=== PATIENT | male | born 1950 | race Caucasian/White ===

== ENCOUNTER 2016-10-29 15:46 | Observation (INO) | payer BC ==
[~2016-10-29] VITALS: Ht 185.4 cm; Wt 106.4 kg
[~2016-10-29 15:46] MED LIST: ASPEC81 PO; LISI20TA PO; SIMV20TA2 PO
[2016-10-29] MEDS ORDERED: LSNP/30 PO (16:07)
[2016-10-29] MEDS ORDERED: ZCR40 PO (16:07)
[2016-10-29 16:46] LABS: HEMATOCRIT 44.1 % (42-52); MEAN CELL VOLUME 96.1 fL (80-100); MEAN CORPUSCULAR HEMOGLOBIN 32.9 pg (25-34); MEAN CORPUSCULAR HGB CONC 34.2 g/dl (32-36); MEAN PLATELET VOLUME 10.8 fL (7.4-10.4); PLATELET COUNT 168 K/uL (130-400); RED BLOOD COUNT 4.59 M/uL (4.7-6.1); WHITE BLOOD COUNT 6.91 K/uL (4.8-10.8)
--- NOTE | 2016-10-29 16:53 | DIAGNOSTIC IMAGING REPORT ---
CHEST ONE VIEW PORTABLE HISTORY: Atypical chest pain COMPARISON: None. FINDINGS: The heart is top normal in size. Mild diffuse interstitial thickening. This may be chronic. No pleural effusions. No pneumothorax. No focal lung consolidations to suggest pneumonia. No evidence for pulmonary edema. IMPRESSION: Mild diffuse interstitial thickening which is likely chronic. No focal lung consolidations to suggest pneumonia. No evidence for pulmonary edema. Electronically signed by: Moises Motta M.D. 10/29/2016 4:52 PM Dictated Date/Time: 10/29/2016 4:51 PM
[2016-10-29 17:00] LABS: BLOOD UREA NITROGEN 14 mg/dl (7-18); CALCIUM 9.7 mg/dl (8.5-10.1); CARBON DIOXIDE 25 mmol/L (21-32); CHLORIDE 106 mmol/L (98-107); GLUCOSE 119 mg/dl (70-99); POTASSIUM 3.8 mmol/L (3.5-5.1); SODIUM 141 mmol/L (136-145)
[2016-10-29 17:01] LABS: INR 1.1 (0.9-1.1); PARTIAL THROMBOPLASTIN RATIO 0.9; PROTHROMBIN TIME (PATIENT) 11.4 SECONDS (9.0-12.0)
[2016-10-29 17:02] LABS: ALT/SGPT 56 U/L (12-78); AST/SGOT 17 U/L (15-37); BUN/CREATININE RATIO 15.2 (10-20); CREATININE 0.89 mg/dl (0.60-1.40)
[2016-10-29 17:11] LABS: ALB/GLOB RATIO 1.2 (0.9-2); ALKALINE PHOSPHATASE 68 U/L (45-117); CKMB/CK RATIO 1.9 (0-3.0)
[2016-10-29] MEDS ORDERED: ASPIRIN 324 MG CHEW PO STA (17:12)
[2016-10-29] MEDS ORDERED: ACETAMINOPHEN 500 MG TAB PO STA (17:12)
[2016-10-29] MEDS ORDERED: KETOROLAC TROMETHAMINE 30 MG/ML VIAL IV STA (17:12)
--- NOTE | 2016-10-29 17:12 | EMERGENCY ROOM VISIT NOTE ---
History Report prepared by Yohana: Erendira Tyler Under the Supervision of: Dr. Jonah Quick M.D. First contact with patient: 17:05 Chief Complaint: CHEST PAIN Stated Complaint: CHEST PAIN Nursing Triage Summary: Patient reports going to his PCp for chest pain that he got after excersizing on the bike a the gym. Patient has had chest pain for approx 1.5 hours explains it is a "tightness" patient. Patient was given 2 nitor tabs at PCP office took pain from 7 to a 3. Patient also was given 324 ASA, patient denies SOB or nausea at this time. History of Present Illness The patient is a 65 year old male who presents to the Emergency Room with complaints of constant chest pain beginning 2 hours prior to arrival. The patient states that he was at the gym on the exercise bike and then went home when the pain began. He notes that movement worsens the pain and describes the pain as tightness. He is experiencing nausea. The patient denies history of heart disease of recent stress test. 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 Review of Systems See HPI for pertinent positives & negatives. A total of 10 systems reviewed and were otherwise negative. Past Medical & Surgical Medical Problems: (1) Chest pain Family History Patient reports no known family medical history. Social History Smoking Status: Never Smoker Smokeless Tobacco Use: No Marital Status: Housing Status: lives with family Occupation Status: retired Current/Historical Medications Scheduled Aspirin Enteric Coated (Ecotrin Or Generic *), 81 MG PO DAILY Lisinopril (Zestril), 30 MG PO QAM Simvastatin (Simvastatin), 40 MG PO QAM Allergies Coded Allergies: No Known Allergies (Verified , 10/29/16) Physical Exam Vital Signs Date Time Temp Pulse Resp B/P Pulse Ox O2 Delivery O2 Flow Rate FiO2 10/29/16 16:25 69 10/29/16 15:57 97 Room Air 10/29/16 15:53 96 Room Air 10/29/16 15:53 37.0 65 18 168/88 98 Room Air Physical Exam CONSTITUTIONAL: Moderate painful distress with positional movement, especially sitting up. HEENT: No icterus, moist mucous membranes NECK: No meningismus, trachea is midline. CARDIOVASCULAR: Regular rate, normal perfusion RESPIRATORY: Unlabored breathing. Clear to auscultation. GASTROINTESTINAL: Non-tender GENITOURINARY: No flank tenderness MUSCULOSKELETAL: Full range of motion. Chest wall mild tenderness to palpation of sternum. NEUROLOGIC: No acute gross focal deficits. PSYCHIATRIC: Normal affect SKIN: Normal for ethnicity. Medical Decision & Procedures ER Provider Diagnostic Interpretation: X-ray results as stated below per interpretation by me and the radiologist. CHEST ONE VIEW PORTABLE HISTORY: Atypical chest pain COMPARISON: None. FINDINGS: The heart is top normal in size. Mild diffuse interstitial thickening. This may be chronic. No pleural effusions. No pneumothorax. No focal lung consolidations to suggest pneumonia. No evidence for pulmonary edema. IMPRESSION: Mild diffuse interstitial thickening which is likely chronic. No focal lung consolidations to suggest pneumonia. No evidence for pulmonary edema. Electronically signed by: Moises Motta M.D. 10/29/2016 4:52 PM Dictated Date/Time: 10/29/2016 4:51 PM Laboratory Results 10/29/16 16:10 10/29/16 16:10 Test 10/29/16 16:10 10/29/16 17:35 Red Blood Count 4.59 M/uL (4.7-6.1) Mean Corpuscular Volume 96.1 fL (80-100) Mean Corpuscular Hemoglobin 32.9 pg (25-34) Mean Corpuscular Hemoglobin Concent 34.2 g/dl (32-36) RDW Standard Deviation 45.3 fL (36.4-46.3) RDW Coefficient of Variation 13.0 % (11.5-14.5) Mean Platelet Volume 10.8 fL (7.4-10.4) Prothrombin Time 11.4 SECONDS (9.0-12.0) Prothromb Time International Ratio 1.1 (0.9-1.1) Activated Partial Thromboplast Time 23.4 SECONDS (21.0-31.0) Partial Thromboplastin Ratio 0.9 Anion Gap 10.0 mmol/L (3-11) Est Creatinine Clear Calc Drug Dose 105.3 ml/min Estimated GFR () 104.0 Estimated GFR (Non- 89.7 BUN/Creatinine Ratio 15.2 (10-20) Calcium Level 9.7 mg/dl (8.5-10.1) Total Bilirubin 1.0 mg/dl (0.2-1) Aspartate Amino Transf (AST/SGOT) 17 U/L (15-37) Alanine Aminotransferase (ALT/SGPT) 56 U/L (12-78) Alkaline Phosphatase 68 U/L (45-117) Total Creatine Kinase 180 U/L (39-308) Creatine Kinase MB 3.4 ng/ml (0.5-3.6) Creatine Kinase MB Ratio 1.9 (0-3.0) Total Protein 7.1 gm/dl (6.4-8.2) Albumin 3.9 gm/dl (3.4-5.0) Globulin 3.2 gm/dl (2.5-4.0) Albumin/Globulin Ratio 1.2 (0.9-2) Troponin I < 0.015 ng/ml (0-0.045) Labs reviewed by ED physician. Medications Administered Medications (Trade) Dose Ordered Sig/Patricia Route Start Time Stop Time Status Last Admin Dose Admin Acetaminophen (Tylenol Tab) 1,000 mg NOW STAT PO 10/29/16 17:12 10/29/16 17:14 DC 10/29/16 17:32 1,000 MG Ketorolac Tromethamine (Toradol Inj) 30 mg NOW STAT IV 10/29/16 17:12 10/29/16 17:14 DC 10/29/16 17:32 30 MG Morphine Sulfate (MoRPHine SULFATE INJ) 4 mg ONE PRN IV 10/29/16 17:15 11/12/16 17:14 10/29/16 17:32 4 MG ECG Indication: chest pain Rate (beats per minute): 67 Rhythm: normal sinus Findings: RBBB, other (borderline acis, nonspecific ST findings) ED Course 1708: Past medical records reviewed. The patient was evaluated in room B4. A complete history and physical examination was performed. 1712: Aspirin Chew 324 mg PO, Toradol Inj 30 mg IV, Tylenol Tab 1,000 mg PO. 1715: Morphine Sulfate Inj 4 mg IV. 1719: Discussed the patient's case with Dr. Jean ALARCON. The patient will be evaluated for further management. Medical Decision Differential diagnoses include but are not limited to; acute coronary syndrome, pericarditis, pleurisy, musculoskeletal pain. 65-year-old presented to the emergency department with his for evaluation of one half hours of constant retrosternal chest pain now improving and nearly gone on my examination the emergency room. This pain occurred after working out at the gym. He notes it is particularly positional especially when he sits up in bed. Review of systems otherwise negative. No known heart disease and no recent cardiac consultations or stress test. Initial EKG demonstrated a right bundle branch block with nonspecific changes and normal troponin. Second for also completely normal. Patient request [facility] prescription for admission as well as cardiac consultation. Case discussed with Dr. Pena with [facility] group and admission arranged. Aspirin, Tylenol, Toradol and morphine PRN pain ordered. Consults Time Called: 1715 Consulting Physician: [place]. [place] [facility] [place] Call: 1710 Discussed the patient's case. The patient will be evaluated for further management. Impression Primary Impression: Precordial chest pain Scribe Attestation The scribe's documentation has been prepared under my direction and personally reviewed by me in its entirety. I confirm that the note above accurately reflects all work, treatment, procedures, and medical decision making performed by me. Departure Information Dispostion Being Evaluated By Hospitalist Referrals Pro,Basil Mukherjee M.D. (PCP)
[2016-10-29] MEDS ORDERED: MoRPHine SULFATE 4 MG/ML 1 ML CARP\\VIAL IV PRN (17:15)
[2016-10-29] MEDS ORDERED: ONDANSETRON INJ 2 MG/ML 2 ML VIAL IV PRN (18:00)
[2016-10-29] MEDS ORDERED: POLYETHYLENE (MIRALAX) 17 GM PACK PO PRN (18:00)
[2016-10-29] MEDS ORDERED: ACETAMINOPHEN 325 MG TAB PO PRN (18:00)
[2016-10-29] MEDS ORDERED: HydrALAZINE HCL 20 MG/ML VIAL IV. PRN (18:00)
[2016-10-29] MEDS ORDERED: ALUMINUM/MAGNESIUM/SIMETH (MAALOX MAX) 30 ML UDC PO PRN (18:00)
[2016-10-29] MEDS ORDERED: MAGNESIUM HYDROXIDE SUSP 30 ML UDC PO PRN (18:00)
[2016-10-29] MEDS ORDERED: NITROGLYCERIN 0.4 MG SL PER TAB CHARGE SL PRN (18:00)
--- NOTE | 2016-10-29 18:16 | History and Physical ---
History & Physical Date & Time of Service: Oct 29, 2016 at 17:56 Chief Complaint: Chest Pain Primary Care Physician: Basil Orourke M.D. History of Present Illness Source: patient, family Patient is a pleasant 65 y/o male, with PMHx of HTN, hyperlipidemia, VAL, and TIA, who presented to the ED because of chest pain that occurred while working out on an exercise bike. After completing the exercise bike this evening, patient went to the locker room and started to experience chest discomfort that radiate to the back. Patient started working out this week since stopping during the holidays. +bilateral numbness/tingling of upper extremities. + nausea. Pain was a 7/10 prior to arrival. Currently, after receiving IV Morphine , Toradol, and Tylenol in the ED, patient rates his pain a 2/10. Pain increases with movement. He denies any recent injuries or heavy lifting. Patient denies any cardiac history such as CAD, [place], arrhythmias, or heart catheterizations in the past. He did have a stress test and echo ~20 years ago when he had a TIA, but was unremarkable. He denies any history of DVT/PE. Patient denies any fever , chills, sweats, lightheadedness, dizziness, vision changes, palpitations, edema, SOB, wheezing, cough, abdominal pain, vomiting, diarrhea, urinary symptoms, melena, weakness, muscle/joint pain, anxiety/depression, active bleeding, or new skin discoloration/changes. Past Medical/Surgical History Medical: 1. HTN 2. Hyperlipidemia 3. VAL 4. TIA Surgical: 1. Appendectomy 2. Tonsillectomy Social History Smoking Status: Never Smoker Alcohol Use: heavy (3 drinks per day ) Multi-Drug Resistant Organisms History of MDRO: No Allergies Coded Allergies: No Known Allergies (Verified , 10/29/16) Home Medications Scheduled Aspirin Enteric Coated (Ecotrin Or Generic *), 81 MG PO DAILY Lisinopril (Zestril), 30 MG PO QAM Simvastatin (Simvastatin), 40 MG PO QAM Physical Exam Vital Signs Date Time Temp Pulse Resp B/P Pulse Ox O2 Delivery O2 Flow Rate FiO2 10/29/16 16:25 69 10/29/16 15:57 97 Room Air 10/29/16 15:53 96 Room Air 10/29/16 15:53 37.0 65 18 168/88 98 Room Air General Appearance: WD/WN, no apparent distress Head: normocephalic, atraumatic Eyes: normal inspection, PERRL ENT: hearing grossly normal Neck: supple Respiratory/Chest: lungs clear, normal breath sounds, no respiratory distress, no accessory muscle use Cardiovascular: regular rate, rhythm, normal peripheral pulses Abdomen/GI: normal bowel sounds, non tender, soft Back: normal inspection Extremities/Musculoskelatal: no calf tenderness, no pedal edema Neurologic/Psych: alert, normal mood/affect, oriented x 3 Skin: normal color, warm/dry, no rash Diagnostics Laboratory Results Results Past 24 Hours Test 10/29/16 16:10 10/29/16 17:35 Range/Units White Blood Count 6.91 4.8-10.8 K/uL Red Blood Count 4.59 4.7-6.1 M/uL Hemoglobin 15.1 14.0-18.0 g/dL Hematocrit 44.1 42-52 % Mean Corpuscular Volume 96.1 80-100 fL Mean Corpuscular Hemoglobin 32.9 25-34 pg Mean Corpuscular Hemoglobin Concent 34.2 32-36 g/dl RDW Standard Deviation 45.3 36.4-46.3 fL RDW Coefficient of Variation 13.0 11.5-14.5 % Platelet Count 168 130-400 K/uL Mean Platelet Volume 10.8 7.4-10.4 fL Prothrombin Time 11.4 9.0-12.0 SECONDS Prothromb Time International Ratio 1.1 0.9-1.1 Activated Partial Thromboplast Time 23.4 21.0-31.0 SECONDS Partial Thromboplastin Ratio 0.9 Sodium Level 141 136-145 mmol/L Potassium Level 3.8 3.5-5.1 mmol/L Chloride Level 106 98-107 mmol/L Carbon Dioxide Level 25 21-32 mmol/L Anion Gap 10.0 3-11 mmol/L Blood Urea Nitrogen 14 7-18 mg/dl Creatinine 0.89 0.60-1.40 mg/dl Est Creatinine Clear Calc Drug Dose 105.3 ml/min Estimated GFR () 104.0 Estimated GFR (Non- 89.7 BUN/Creatinine Ratio 15.2 10-20 Random Glucose 119 70-99 mg/dl Calcium Level 9.7 8.5-10.1 mg/dl Total Bilirubin 1.0 0.2-1 mg/dl Aspartate Amino Transf (AST/SGOT) 17 15-37 U/L Alanine Aminotransferase (ALT/SGPT) 56 12-78 U/L Alkaline Phosphatase 68 45-117 U/L Total Creatine Kinase 180 39-308 U/L Creatine Kinase MB 3.4 0.5-3.6 ng/ml Creatine Kinase MB Ratio 1.9 0-3.0 Troponin I < 0.015 0-0.045 ng/ml Total Protein 7.1 6.4-8.2 gm/dl Albumin 3.9 3.4-5.0 gm/dl Globulin 3.2 2.5-4.0 gm/dl Albumin/Globulin Ratio 1.2 0.9-2 Diagnostic Radiology CHEST ONE VIEW PORTABLE HISTORY: Atypical chest pain COMPARISON: None. FINDINGS: The heart is top normal in size. Mild diffuse interstitial thickening. This may be chronic. No pleural effusions. No pneumothorax. No focal lung consolidations to suggest pneumonia. No evidence for pulmonary edema. IMPRESSION: Mild diffuse interstitial thickening which is likely chronic. No focal lung consolidations to suggest pneumonia. No evidence for pulmonary edema. Electronically signed by: Moises Motta M.D. 10/29/2016 4:52 PM Dictated Date/Time: 10/29/2016 4:51 PM The status of this report is Signed. Draft = Not yet reviewed or approved by Radiologist. Signed = Reviewed and approved by Radiologist. EKG KAYDEN BAUM ID:[id number] 29-OCT-2016 15:53:15 [facility] Normal sinus rhythm Right bundle branch block Abnormal ECG When compared with ECG of 13-AUG-2003 15:17, Right bundle branch block is now Present 25mm/s 10mm/mV 150Hz 8.0 SP2 12SL 241 MIKE: 9 Referred by: Unconfirmed Vent. rate 67 BPM MT interval 198 ms QRS duration 154 ms QT/QTc 454/479 ms P-R-T axes 49 -13 0 1950 (65 yr) Male Room: Loc:15 Pulp Roller:Channing Sanchez ind: Impression Assessment and Plan 65 y/o male, with PMHx of HTN, hyperlipidemia, VAL, and TIA, who presented to the ED because of chest pain that occurred while working out on an exercise bike Cardiac r/o: - Admit tele observation - Trend cardiac enzymes - NPO after midnight for tress echo tomorrow AM, if cardiac enzymes remain negative - Last ha1c was in May 2016 of 5.8 - PRP tomorrow AM HTN: - Continue Lisinopril 30 mg PO QAM - Add Hydralazine 10 mg IV PRN for SBP >170 or DBP >100 Hyperlipidemia: - Continue Simvastatin 40 mg PO QAM - Lipid panel last checked in May 2016- triglycerides 178, total cholesterol 160, HDL 39, and LDL 85 VAL: - CPAP GI Prophylaxis: - Maalox PRN - IV Zofran PRN - Colace and/or Milk of Mag PRN DVT prophylaxis: - Early ambulation - FAN and SCDs Code Status: - LEVEL I, FULL Dispo: - From home Level of Care Telemetry Resuscitation Status FULL RESUSCITATION VTE Prophylaxis VTE Risk Assessment Done? Y/N: Yes Risk Level: Low Given or contraindicated: T.E.D. Stockings, SCD's
[2016-10-29 19:19] VITALS: BP 152/87; PULSE 75; TEMP 36.7; O2SAT 95; Ht 185.4 cm; Wt 106.4 kg
[2016-10-29 20:00] VITALS: O2SAT 95
[2016-10-29] MEDS ORDERED: IV FLUIDS COMPLETED PRN (20:15)
[2016-10-29 23:56] VITALS: BP 155/81; PULSE 64; TEMP 36.6; O2SAT 96
[2016-10-30] VITALS (25 sets, daily range): BP systolic 151–217; BP diastolic 72–103; PULSE 60–78; TEMP 36.4–37.1; O2SAT 94–98
[2016-10-30] MEDS: LISINOPRIL 10 MG TAB PO SCH (07:57)
[2016-10-30] MEDS: ASPIRIN 81 MG ECTAB PO SCH (07:57)
[2016-10-30] MEDS ORDERED: LORAZEPAM 2 MG/ML 1 ML VIAL IV PRN ×2 (08:30)
[2016-10-30 08:45] LABS: BUN/CREATININE RATIO 21.6 (10-20); CALCIUM 9.3 mg/dl (8.5-10.1); CREATININE 0.96 mg/dl (0.60-1.40); POTASSIUM 3.8 mmol/L (3.5-5.1)
[2016-10-30] MEDS: LORAZEPAM 0.5 MG TAB PO PRN ×2 (08:46→17:44)
[2016-10-30] MEDS ORDERED: MoRPHine SULFATE 4 MG/ML 1 ML CARP\\VIAL IV PRN (09:45)
[2016-10-30] MEDS ORDERED: MoRPHine SULFATE 2 MG/ML CARP IV PRN (09:45)
[2016-10-30] MEDS ORDERED: KETOROLAC TROMETHAMINE 15 MG/ML VIAL IV. STA ×2 (09:53→12:59)
[2016-10-30] MEDS ORDERED: OPTIRAY 320 IV PRN (10:30)
--- NOTE | 2016-10-30 10:52 | DIAGNOSTIC IMAGING REPORT ---
CHEST COMBO ANGIO DISSECTION CLINICAL HISTORY: Atypical chest pain. Possible aortic dissection. COMPARISON STUDY: Chest x-ray dated 10/29/2016 FINDINGS: Unenhanced images were obtained through the chest. Patient was then scanned in a dynamic helical fashion during intravenous administration of 92 cc of Optiray 320. MIP imaging was performed. There are coronary artery calcifications present. There are no pathologically enlarged axillary, mediastinal, or hilar lymph nodes. There is no evidence of thoracic aortic dilatation. There are no intimal flaps to indicate acute aortic dissection. No pleural effusions are visualized. There is no focal pulmonary consolidation. There are mild dependent atelectatic changes. There is hepatic steatosis. IMPRESSION: 1. No evidence of thoracic aortic aneurysm or dissection 2. No evidence of pathologic adenopathy 3. No evidence of focal pulmonary consolidation Electronically signed by: Jason Brooks M.D. 10/30/2016 10:50 AM Dictated Date/Time: 10/30/2016 10:46 AM
--- NOTE | 2016-10-30 12:38 | Progress Note ---
Subjective Date of Service: Oct 30, 2016. Subjective this pt is concerned about what is happening but I reassured him all testing was negative, was markedly hypertensive upon attempted stress testing Problem List Medical Problems: (1) Precordial chest pain Status: Acute Review of Systems Constitutional: No chills, No fever Respiratory: No cough, No shortness of breath Cardiac: + chest pain, No edema, No orthopnea Abdomen: No diarrhea, No nausea, No pain, No vomiting Musculoskeletal: No joint pain, No muscle pain Male : No dysuria, No urinary frequency Neurologic: No memory loss, No paralysis, No weakness Psychiatric: + anxiety, No anhedonism, No depression symptoms Objective Vital Signs Date Time Temp Pulse Resp B/P Pulse Ox O2 Delivery O2 Flow Rate FiO2 10/30/16 12:03 94 Room Air 10/30/16 11:17 36.7 73 18 198/101 97 Room Air 10/30/16 09:51 75 173/76 73 10/30/16 09:13 70 193/90 10/30/16 08:56 70 20 169/92 98 Nasal Cannula 2.0 10/30/16 08:39 73 20 178/87 97 Nasal Cannula 2.0 10/30/16 08:24 94 Room Air 10/30/16 07:40 37.1 65 18 196/97 95 Room Air 65 192/103 68 10/30/16 07:34 217/98 10/30/16 07:32 36.9 60 16 186/85 98 Room Air 10/30/16 04:00 94 Room Air 10/30/16 03:57 36.5 60 18 151/80 94 Room Air 10/30/16 00:00 96 Room Air 10/29/16 23:56 36.6 64 18 155/81 96 Room Air 10/29/16 20:00 95 Room Air 10/29/16 19:19 36.7 75 20 152/87 95 Room Air 10/29/16 18:40 64 18 145/82 98 10/29/16 16:25 69 10/29/16 15:57 97 Room Air 10/29/16 15:53 96 Room Air 10/29/16 15:53 37.0 65 18 168/88 98 Room Air Physical Exam General Appearance: WD/WN, + mild distress (anxious) Respiratory/Chest: chest non-tender, lungs clear, normal breath sounds Cardiovascular: regular rate, rhythm, no murmur Abdomen: normal bowel sounds, non tender, soft Extremities: no pedal edema, no calf tenderness Neurologic/Psychiatric: alert, oriented x 3 Laboratory Results Last 24 Hours Test 10/29/16 16:10 10/29/16 17:35 10/30/16 00:00 10/30/16 00:47 White Blood Count 6.91 K/uL Red Blood Count 4.59 M/uL Hemoglobin 15.1 g/dL Hematocrit 44.1 % Mean Corpuscular Volume 96.1 fL Mean Corpuscular Hemoglobin 32.9 pg Mean Corpuscular Hemoglobin Concent 34.2 g/dl RDW Standard Deviation 45.3 fL RDW Coefficient of Variation 13.0 % Platelet Count 168 K/uL Mean Platelet Volume 10.8 fL Prothrombin Time 11.4 SECONDS Prothromb Time International Ratio 1.1 Activated Partial Thromboplast Time 23.4 SECONDS Partial Thromboplastin Ratio 0.9 Sodium Level 141 mmol/L Potassium Level 3.8 mmol/L Chloride Level 106 mmol/L Carbon Dioxide Level 25 mmol/L Anion Gap 10.0 mmol/L Blood Urea Nitrogen 14 mg/dl Creatinine 0.89 mg/dl Est Creatinine Clear Calc Drug Dose 105.3 ml/min Estimated GFR () 104.0 Estimated GFR (Non- 89.7 BUN/Creatinine Ratio 15.2 Random Glucose 119 mg/dl Calcium Level 9.7 mg/dl Total Bilirubin 1.0 mg/dl Aspartate Amino Transf (AST/SGOT) 17 U/L Alanine Aminotransferase (ALT/SGPT) 56 U/L Alkaline Phosphatase 68 U/L Total Creatine Kinase 180 U/L Creatine Kinase MB 3.4 ng/ml 2.0 ng/ml Creatine Kinase MB Ratio 1.9 Troponin I < 0.015 ng/ml < 0.015 ng/ml < 0.015 ng/ml Total Protein 7.1 gm/dl Albumin 3.9 gm/dl Globulin 3.2 gm/dl Albumin/Globulin Ratio 1.2 Test 10/30/16 07:11 10/30/16 08:00 10/30/16 08:56 Sodium Level 142 mmol/L Potassium Level 3.8 mmol/L Chloride Level 107 mmol/L Carbon Dioxide Level 25 mmol/L Anion Gap 10.0 mmol/L Blood Urea Nitrogen 21 mg/dl Creatinine 0.96 mg/dl Est Creatinine Clear Calc Drug Dose 98.2 ml/min Estimated GFR () 95.8 Estimated GFR (Non- 82.6 BUN/Creatinine Ratio 21.6 Random Glucose 100 mg/dl Calcium Level 9.3 mg/dl Creatine Kinase MB Ratio D-Dimer 390 ug/L FEU Creatine Kinase MB 1.8 ng/ml Troponin I < 0.015 ng/ml Assessment and Plan 65 M with atypical chest pain and 3 negative troponin, pain is worsened by movement and sitting up Chest pain. did eval with CT for dissection that is negative, d dimer is negative and resting echo is negative, Bp too high to stress, will attempt to control to stress 10/31 Htn typically takes caroline i, will add metoprolol to help with PRN hydralazine cerebrovascular risk reduction, continue aspirin and statin
[2016-10-30] MEDS ORDERED: METOPROLOL TARTRATE 25 MG TAB PO ONE (12:42)
[2016-10-30] MEDS: HydrALAZINE HCL 20 MG/ML VIAL IV PRN ×2 (13:02→17:44)
--- NOTE | 2016-10-30 14:17 | ECHOCARDIOGRAM REPORT ---
*NOTICE TO RECEIVING [employer] This information is strictly Confidential and protected under [place] law. [place] law prohibits you from making any further disclosure of this information unless further disclosure is expressly permitted by the written consent of the person to whom it pertains or is authorized by law. A general authorization for the release of medical or other information is not sufficient for this purpose. Hospital accepts no responsibility if the information is made available to any other person, INCLUDING THE PATIENT. Interpretation Summary * Name: KAYDEN BAUM Study Date: 10/30/2016 11:22 AM BP: 196/100 mmHg * Patient Location: [facility] HR: 71 * : 1950 (M/d/yyyy) Gender: Male Height: 73 in * Age: 65 yrs Ethnicity: [place] Weight: 231 lb * Ordering Physician: Danica Fu * Referring Physician: DANICA FU * Performed By: Donna Castellanos RDCS * * Reason For Study: CHEST PAIN * BSA: 2.3 m2 * History: CHEST PAIN * -- Conclusions -- * 1. Normal left ventricular size and hyperdynamic systolic function. EF 70-75%. No regional wall motion abnormalities. No left ventricular hypertrophy. Diastolic dysfunction, Grade II (pseudonormalization pattern). * 2. Aortic valve sclerosis mild, without significant aortic valvular stenosis. * 3. No prior study available for comparison. Procedure Details * A complete two-dimensional transthoracic echocardiogram was performed (2D, M-mode, Doppler and color flow Doppler). Left Ventricle * Normal left ventricular size and hyperdynamic systolic function. EF 70-75%. No regional wall motion abnormalities. No left ventricular hypertrophy. Right Ventricle * The right ventricle is normal in size and function. * The right ventricular systolic function is normal as assessed by tricuspid annular plane systolic excursion (TAPSE) (normal >1.5 cm). Atria * The left atrial size is normal. * Right atrial size is normal. * There is no evidence of atrial septal defect, but resolution does not allow assessment for a patent foramen ovale. Mitral Valve * The mitral valve is grossly normal. * There is no mitral valve stenosis. * There is trace mitral regurgitation. Tricuspid Valve * The tricuspid valve is not well visualized, but is grossly normal. * There is no tricuspid stenosis. * Significant tricuspid regurgitation is absent. Aortic Valve * Aortic valve sclerosis mild, without significant aortic valvular stenosis. * No hemodynamically significant valvular aortic stenosis. * No aortic regurgitation is present. Pulmonic Valve * The pulmonic valve is not well seen, but is grossly normal. * There is no pulmonic valvular stenosis. * Trace pulmonic valvular regurgitation. Great Vessels * The aortic root is normal size. * Ascending aorta of normal dimension Pericardium/Pleural * There is no pericardial effusion. Great Vessels * Normal inferior vena cava size and collapsability with sniff indicates a normal right atrial pressure of 3 mmHg Left Ventricular Diastolic Function * Diastolic dysfunction, Grade II (pseudonormalization pattern). MMode 2D Measurements and Calculations IVSd 1.1 cm IVSs 2.0 cm LVIDd 4.9 cm LVIDs 2.9 cm LVPWd 1.0 cm LVPWs 1.9 cm IVS/LVPW 1.0 FS 40.5 % EDV(Teich) 112.5 ml ESV(Teich) 32.6 ml EF(Teich) 71.1 % EDV(cubed) 117.2 ml ESV(cubed) 24.7 ml EF(cubed) 78.9 % % IVS thick 81.1 % % LVPW thick 84.3 % LV mass(C)d 190.7 grams LV mass(C)dI 83.4 grams/m\S\2 LV mass(C)s 240.9 grams LV mass(C)sI 105.3 grams/m\S\2 SV(Teich) 79.9 ml SI(Teich) 34.9 ml/m\S\2 SV(cubed) 92.5 ml SI(cubed) 40.4 ml/m\S\2 Ao root diam 3.2 cm Ao root area 7.8 cm\S\2 LA dimension 3.7 cm asc Aorta Diam 2.7 cm LA/Ao 1.2 Doppler Measurements and Calculations MV E max paulina 89.7 cm/sec MV A max paulina 77.6 cm/sec MV E/A 1.2 MV dec time 0.23 sec Ao V2 max 147.2 cm/sec Ao max PG 8.7 mmHg Ao max PG (full) 3.3 mmHg LV V1 max PG 5.3 mmHg LV V1 max 115.4 cm/sec TV E max paulina 50.0 cm/sec
[2016-10-30] MEDS: METOPROLOL TARTRATE 25 MG TAB PO SCH (20:48)
[2016-10-30] MEDS ORDERED: SIMVASTATIN 40 MG TAB PO SCH (21:00)
[2016-10-31 03:04] VITALS: BP 161/80; PULSE 71; TEMP 36.4; O2SAT 96
[2016-10-31 07:26] VITALS: BP 178/66; PULSE 63; TEMP 36.4; O2SAT 96
[2016-10-31 07:55] LABS: BUN/CREATININE RATIO 15.7 (10-20); CALCIUM 9.6 mg/dl (8.5-10.1); CREATININE 0.78 mg/dl (0.60-1.40); POTASSIUM 3.8 mmol/L (3.5-5.1)
[2016-10-31] MEDS: ASPIRIN 81 MG ECTAB PO SCH (09:00)
[2016-10-31] MEDS: LISINOPRIL 10 MG TAB PO SCH (09:00)
[2016-10-31] MEDS: METOPROLOL TARTRATE 25 MG TAB PO SCH (09:00)
[2016-10-31 11:30] VITALS: BP 178/78; PULSE 59; TEMP 36.6; O2SAT 98
--- NOTE | 2016-10-31 13:37 | Discharge Instructions ---
Discharge Instructions Admission Reason for Admission: Chest Pain Discharge Discharge Diagnosis / Problem: non cardiac chest pain Discharge Goals Goal(s): Diagnostic testing, Therapeutic intervention Activity Recommendations Activity Limitations: resume your previous activity . Current Hospital Diet Patient's current hospital diet: AHA Diet (Heart Healthy) Discharge Diet Recommended Diet: Regular Diet Procedures Procedures Performed: negative CT chest negative stress test negative D Dimer for blood clot Pending Studies Studies pending at discharge: no Medical Emergencies . Who to Call and When: Medical Emergencies: If at any time you feel your situation is an emergency, please call 911 immediately. . Non-Emergent Contact Non-Emergency issues call your: Primary Care Provider (Dr Orourke call for appointment this week) Call Non-Emergent contact if: temperature is above 101 . . "Provider Documentation" section prepared by Jean Kemp. VTE Core Measure Inpt VTE Proph given/why not?: Harvinder Sepulveda, SCD's
--- NOTE | 2016-10-31 13:40 | Discharge Summary ---
Discharge Summary Admission Date: Oct 29, 2016 at 17:56 Discharge Date: Oct 31, 2016 Discharge Disposition: Home Principal Diagnosis: non cardiac chest pain Procedures: CT chest no dissection Stress Echo negative for inducible RwMA negative D Dimer Medication Reconciliation Continued Medications: Aspirin Enteric Coated (Ecotrin Or Generic *) 81 Mg Ectab 81 MG PO DAILY, 0 Refills Lisinopril (Zestril) 30 Mg Tab 30 MG PO QAM, #30 Simvastatin (Simvastatin) 40 Mg Tab 40 MG PO QAM, #30 Discharge Exam Review of Systems: Constitutional: No chills, No fever Respiratory: No cough, No sputum Cardiovascular: + chest pain, No edema, No orthopnea, No palpitations Abdomen: No nausea, No pain, No vomiting Musculoskeletal: No joint pain, No swelling Genitourinary - Male: No dysuria, No hematuria Physical Exam: General Appearance: WD/WN, no apparent distress Neck: supple, no JVD Respiratory/Chest: chest non-tender, lungs clear, normal breath sounds Cardiovascular: regular rate, rhythm, no edema, normal peripheral pulses Abdomen / GI: normal bowel sounds, non tender, soft Extremities: no pedal edema, normal range of motion Neurologic/Psychiatric: alert, oriented x 3 Hospital Course 65 M with atypical chest pain and 3 negative troponin, pain is worsened by movement and sitting up Chest pain. did eval with CT for dissection that is negative, d dimer is negative and resting echo is negative, BP was up during stay which maybe due to anxiety, did complete and pass stress echo prior to release cerebrovascular risk reduction, continue aspirin and statin recommended appointment with Dr Orourke this week Total Time Spent: Greater than 30 minutes This includes examination of the patient, discharge planning, medication reconciliation, and communication with other providers. Discharge Instructions Please refer to the electronic Patient Visit Report (Discharge Instructions) for additional information.
--- NOTE | 2016-10-31 13:41 | EXERCISE STRESS ECHO ---
*NOTICE TO RECEIVING [employer] This information is strictly Confidential and protected under [place] law. [place] law prohibits you from making any further disclosure of this information unless further disclosure is expressly permitted by the written consent of the person to whom it pertains or is authorized by law. A general authorization for the release of medical or other information is not sufficient for this purpose. Hospital accepts no responsibility if the information is made available to any other person, INCLUDING THE PATIENT. Interpretation Summary * Name: KAYDEN BAUM Study Date: 10/31/2016 12:20 PM BP: 167/80 mmHg * Patient Location: [facility] HR: 62 * : 1950 (M/d/yyyy) Gender: Male Height: 73 in * Age: 65 yrs Ethnicity: [place] Weight: 231 lb * Referring Physician: JENNIFER * Performed By: Donna Castellanos RDCS * * Reason For Study: CHEST PAIN * BSA: 2.3 m2 * History: CHEST PAIN * -- Conclusions -- * 1. Negative exercise stress echo for ischemia at 84% MPHR. * 2. Negative stress ECG for ischemia. No exercise induced arrhythmias. * 3. Above average functional capacity. Exercise 9 minutes. Achieved 10.1 METS. Normal blood pressure response. No chest pain. * 4. Normal resting LV function. For resting study details please see Echo report from 10/30/2016. Procedure Details * ECHOEX, CPT #73654 * A contrast injection of Definity was performed to improve assessment of LV function. * Contrast was injected into an intravenous site in the right arm. * One vial of Definity ultrasound contrast was diluted in normal saline to a total volume of 10 ml. A total of '4' ml of solution was administered during imaging. * Lot # [id number] of Definity utilized for procedure. * Expiration date SEP 18. * The attending nurse who injected the contrast agent was DR PAULO BARRY MD, RN. Left Ventricular Findings with Stress * This was essentially a normal study. Left Ventricle * The left ventricle is grossly normal size. * There is normal left ventricular wall thickness. * Resting wall motion: Normal. Stress wall motion: Appropriate increase in Left ventricular systolic function and decrease in cavity size. No stress induced segmental wall motion abnormalities. Great Vessels * The aortic root and proximal ascending aorta are normal sized. Stress Parameters * Normal sinus rhythm with right bundle branch block * Stress ECG: No ST changes. No arrhythmias. * No arrhythmia were noted with stress. * The stress portion of this study was personally supervised by the undersigned interpreting physician. * Rest heart rate was '62' BPM. * Rest blood pressure was '167/80' * Maximum heart rate achieved was 131 bpm. * Maximum heart rate was 84 % of maximum age-predicted heart rate. * Maximum blood pressure was '212/75' * Total exercise time was '9:01' * Maximum exercise MET level achieved was '10.10' METS * Maximum treadmill speed was '3.40' miles per hour. * Maximum treadmill elevation was '14.00'% grade. * Exercise was terminated due to 'FATIGUE' Left Ventricular Findings with Stress * The study was technically adequate.
[2016-10-31 13:45] VITALS: BP 178/78; PULSE 59; TEMP 36.6; O2SAT 98
== END 2016-10-31 15:55 | disposition home or self-care (01) ==
LOC: ENRESERVDT → ENRESERVTM → EDBD 15:46 → C.EDB 15:48 → C.MED 17:56
PROVIDERS: ADMIT Internal Medicine; ATTEND Internal Medicine
DX: R07.89 Other chest pain (principal); I10 Essential (primary) hypertension; R79.89 Other specified abnormal findings of blood chemistry; E78.5 Hyperlipidemia, unspecified; G47.33 Obstructive sleep apnea (adult) (pediatric); Z79.82 Long term (current) use of aspirin; Z86.73 Personal history of transient ischemic attack (TIA), and cerebral infarction without residual deficits

== ENCOUNTER → 2016-11-03 | Outpatient (CLI) | payer BC ==
[~2016-11-03] MED LIST changes: -LISI20TA PO; +LSNP/30 PO; -SIMV20TA2 PO; +ZCR40 PO
--- NOTE | 2016-11-03 13:36 | DIAGNOSTIC IMAGING REPORT ---
THORACIC SPINE 3 VIEWS HISTORY: Pain. Neuropathy. R26.9 Gait [id number] Leg [id number] Pain of lower COMPARISON: None. FINDINGS: There is no fracture. Mild that should scoliosis. Moderate degenerative disc change throughout the entire thoracic region. No evidence for compression deformity. IMPRESSION: Mild that should scoliosis. Moderate degenerative disc changes throughout. No acute process. Electronically signed by: Taran Sherman M.D. 11/03/2016 1:35 PM Dictated Date/Time: 11/03/2016 1:34 PM
--- NOTE | 2016-11-03 13:43 | DIAGNOSTIC IMAGING REPORT ---
LUMBAR SPINE 5 VIEWS CLINICAL HISTORY: Gait abnormality. Lower extremity weakness. FINDINGS: 5 views of the lumbar spine are obtained. No prior studies are available for comparison at the time of dictation. The skeletal structures appear osteopenic. There is no radiographic evidence of fracture or malalignment. Vertebral body height and alignment are maintained. The transverse and spinous processes are intact. There is no evidence of spondylolysis. Small anterior osteophytes are seen throughout. Mild facet arthropathy is noted in the lower lumbar spine. There is moderate degenerative disc space narrowing at L5-S1. The remaining disc spaces are well-maintained. The visualized bony pelvis appears intact. Mild sclerotic change is present in the sacroiliac joints. There is a nonobstructed abdominal bowel gas pattern. Numerous surgical clips are shown the pelvis. There is moderate atherosclerotic calcification of the abdominal aorta. A nonobstructing right renal calculus is suspected. IMPRESSION: 1. No acute bony abnormality is seen involving the lumbosacral spine. 2. Osteopenia and mild spondylotic change as above. 3. Suspect a nonobstructing right renal calculus. Electronically signed by: Derick Barragan M.D. 11/03/2016 1:41 PM Dictated Date/Time: 11/03/2016 1:37 PM
--- NOTE | 2016-11-03 14:43 | DIAGNOSTIC IMAGING REPORT ---
CERVICAL SPINE 5 VIEWS HISTORY: Pain. Neuropathy. R26.9 Gait [id number] Leg [id number] Pain of lower COMPARISON: None. FINDINGS: The cervical spine is visualized from C1 through the superior endplate of T1. There is no fracture. No subluxation. Moderate degenerative intervertebral disc change from C5 through C7. Prevertebral soft tissues and the atlantodens interval are intact. IMPRESSION: Moderate degenerative disc change from C5 through C7 of the cervical spine. Minimal calcification of the carotid vasculature bilaterally. Electronically signed by: Taran Sherman M.D. 11/03/2016 2:42 PM Dictated Date/Time: 11/03/2016 2:39 PM
== END | disposition home or self-care (01) ==
LOC: C.RAD1850 12:48
PROVIDERS: ATTEND Family Medicine
DX: R26.9 Unspecified abnormalities of gait and mobility (principal); R29.898 Other symptoms and signs involving the musculoskeletal system; M79.606 Pain in leg, unspecified; M54.2 Cervicalgia; M85.88 Other specified disorders of bone density and structure, other site; M54.6 Pain in thoracic spine; M54.5 Low back pain

== ENCOUNTER → 2017-08-17 | Outpatient (CLI) | payer BC ==
--- NOTE | 2017-08-17 13:31 | DIAGNOSTIC IMAGING REPORT ---
KUB CLINICAL HISTORY: 66 years-old Male presenting with N20.0 [id number]. TECHNIQUE: Single supine view of the abdomen was obtained. COMPARISON: None. FINDINGS: Normal bowel gas pattern. No evidence of free intraperitoneal gas, pneumatosis, or portal venous gas. 2 adjacent calcifications noted projecting over the right kidney consistent with renal calculi at the lower pole, one measuring 4 mm and the second measuring 5 mm. No calcifications project over the left kidney. Multiple pelvic phleboliths noted on the right. Scattered pelvic surgical clips, possibly from prior prostatectomy. Osseous structures normal. Lung bases clear. IMPRESSION: 1. Right nephrolithiasis. Electronically signed by: Remy Alvarado M.D. 08/17/2017 1:30 PM Dictated Date/Time: 08/17/2017 1:28 PM
== END | disposition home or self-care (01) ==
LOC: C.RAD1850 13:07
PROVIDERS: ATTEND Urology
DX: N20.0 Calculus of kidney (principal)

== ENCOUNTER → 2017-09-06 | Outpatient (CLI) | payer BC ==
[~2017-09-06] VITALS: Ht 185.4 cm; Wt 101.2 kg
[2017-09-06 12:52] VITALS: BP 136/80; PULSE 72; Ht 185.4 cm; Wt 101.2 kg
== END | disposition home or self-care (01) ==
LOC: C.NEUR 12:02
PROVIDERS: ATTEND Internal Medicine Pulmonary Disease
DX: G47.30 Sleep apnea, unspecified (principal); I10 Essential (primary) hypertension; I63.9 Cerebral infarction, unspecified

== ENCOUNTER → 2018-02-16 | Outpatient (CLI) | payer OTHER ==
[~2018-02-16] MED LIST changes: +LISI30TA3 PO; -LSNP/30 PO
--- NOTE | 2018-02-16 11:04 | DIAGNOSTIC IMAGING REPORT ---
(TESTICULAR) SCROTUM-CONT CLINICAL HISTORY: 67 years-old Male presenting with N43.3 Hydrocele of testis. TECHNIQUE: Real-time grayscale and color and spectral Doppler ultrasound imaging of the scrotum was performed. COMPARISON: None. FINDINGS: Right testis: Normal echogenicity and echotexture. Testis measures 5.6 x 3.4 x 3.3 cm. Normal color Doppler flow and arterial and venous waveforms in the testicular parenchyma. Epididymal head normal. Moderate hydrocele. Varicocele present. Left testis: Normal echogenicity and echotexture. Testis measures 5.1 x 3.5 x 3.2 cm. Normal color Doppler flow and arterial and venous waveforms in the testicular parenchyma. Epididymal head normal. Small hydrocele. Varicocele present. Symmetric perfusion of the testes. IMPRESSION: 1. No evidence of testicular torsion. 2. Bilateral hydroceles, right greater than left. 3. Bilateral varicoceles. Electronically signed by: Remy Alvarado M.D. 02/16/2018 11:02 AM Dictated Date/Time: 02/16/2018 11:00 AM
== END | disposition home or self-care (01) ==
LOC: C.ULTR 10:13
PROVIDERS: ATTEND Urology
DX: N43.3 Hydrocele, unspecified (principal); I86.1 Scrotal varices

== ENCOUNTER 2023-03-25 10:26 | Inpatient (IN) ==
--- NOTE | 2023-03-25 11:27 | Emergency Department Note ---
ED Provider Note History of Present Illness Chief Complaint: Hip Pain Stated Complaint: LEFT HIP PAIN Time Seen by Provider: 03/25/23 10:33 Source: patient Mode of arrival: ambulatory This patient is a 72-year-old male who presents to the emergency department for evaluation of left hip pain after fall. Patient reports that last night, he was getting into his car to go to a restaurant and bent down to get some papers out of the car. When he stood up, he felt lightheaded and he fell onto his left hip. He did not pass out. He reports pain in the left hip especially when he is moving or trying to walk on it. He denies numbness or weakness. He did not strike his head and denies any other injuries. Patient denies any associated chest pain or shortness of breath. Home Medications Medication Instructions Recorded Confirmed Type aspirin 81 mg tablet,delayed 81 mg PO QAM 07/21/19 03/25/23 History release (Adult Low Dose Aspirin) lisinopril 30 mg tablet 30 mg PO QAM #90 tabs 04/16/22 03/25/23 Rx simvastatin 40 mg tablet 40 mg PO QAM #90 tabs 04/16/22 03/25/23 Rx Allergies Allergy/AdvReac Type Severity Reaction Status Date / Time No Known Allergies Allergy Verified 12/29/22 09:47 Past Med/Surg History Medical History Abdominal bloating Chest pain Encounter for pre-operative examination Gout History of basal cell carcinoma on face History of Mohs micrographic surgery for skin cancer Hyperlipidemia Hypertension Obstructive sleep apnea cpap Pleural effusion, left Prediabetes Pressure in left side of chest Prostate cancer diagnosed 1999--sx only Surgical History History of colonoscopy with polypectomy History of prostate biopsy malignant History of prostatectomy S/P appendectomy S/P tonsillectomy Family History Grandfather (Maternal) Myocardial infarction Mother Family history of diabetes mellitus Other No family history of adverse response to anesthesia Denies family history of Colon cancer Ovarian cancer Prostate cancer Breast cancer Social History Smoking Status: Never smoker Second Hand Exposure: No; Do You Dip or Chew Tobacco: No; Hx Alcohol Use: Yes Alcohol type: beer, wine and hard liquor Hx Substance Use: No Preferred Language: Setswana Communication Ability: Effective Visual Impairment: No Limitations Hearing Ability: Normal Magnetic Locater Required: No Beliefs That Will Affect Care: None marital status: / Current Living Situation: Alone current occupational status: employed Feels Safe at Home: Yes Childhood Exposure to Second-Hand Smoke: No Dental Care, Regularly: Yes Physical Activity Frequency: 3-4 Times per Week Seatbelt Use: always Sunscreen Use: Yes Assistive Devices: Contacts Physical Exam Vital Signs Vital Signs - 24 hr 03/25/23 10:29 03/25/23 11:54 03/25/23 12:01 Temperature 36.6 C Temperature Source Temporal Artery Scan Pulse Rate - Lying 77 Pulse Rate - Sitting 76 Pulse Rate - Standing 84 Pulse Rate 86 81 Pulse Rate [Apical] Respiratory Rate 16 Blood Pressure - Lying 193/108 H Blood Pressure - Sitting 179/100 H Blood Pressure- Standing 184/98 H Blood Pressure 205/106 H Blood Pressure [Right Arm] Blood Pressure Mean 139 Blood Pressure Mean [Right Arm] Blood Pressure Position [Right Arm] Pulse Oximetry 93 Oxygen Delivery Method Room Air Sepsis Recent Fever Within 48 Hours No Sepsis New/Unexplained Change in Mental Status No Sepsis Action Taken by Nursing No Action Required 03/25/23 12:35 Temperature Temperature Source Pulse Rate - Lying Pulse Rate - Sitting Pulse Rate - Standing Pulse Rate Pulse Rate [Apical] 81 Respiratory Rate 18 Blood Pressure - Lying Blood Pressure - Sitting Blood Pressure- Standing Blood Pressure Blood Pressure [Right Arm] 224/167 H Blood Pressure Mean Blood Pressure Mean [Right Arm] 186 Blood Pressure Position [Right Arm] Semi-fowlers Pulse Oximetry 97 Oxygen Delivery Method Room Air Sepsis Recent Fever Within 48 Hours Sepsis New/Unexplained Change in Mental Status Sepsis Action Taken by Nursing VITALS: Vitals are noted on the nurse's note and reviewed by myself. GENERAL: This is a 72-year-old male, in no acute distress, well-developed well- nourished. SKIN: The skin was without rashes. EARS: External auditory canals clear, tympanic membranes pearly mane without erythema or effusion bilaterally. EYES: Pupils equal round and reactive to light and accommodation. MOUTH: Mucous membranes moist. Tonsils are not enlarged. Pharynx without erythema or exudate. NECK: Supple without nuchal rigidity. No C-spine tenderness. HEART: Regular rate and rhythm without murmurs gallops or rubs. LUNGS: Clear to auscultation bilaterally without wheezes, rales or rhonchi. ABDOMEN: Positive bowel sounds x 4. Soft, nontender to palpation. MUSCULOSKELETAL: No deformity. There is tenderness to palpation of the lateral left hip. Decreased range of motion of the hip secondary to patient discomfort. NEURO: Patient was alert and oriented to person place and time. Course Administered Medications Discontinued Medications Hydralazine HCl (Hydralazine Hcl 20 Mg/Ml Vial) 5 mg IV NOW ONE Stop: 03/25/23 15:25 Last Admin: 03/25/23 15:30 Dose: 5 mg Documented By: RSL Hydralazine HCl (Hydralazine Hcl 20 Mg/Ml Vial) Confirm Administered Dose 20 mg .ROUTE .STK-MED ONE Stop: 03/25/23 15:27 Last Admin: 03/25/23 15:31 Dose: Not Given Documented By: PRADEEP Morphine Sulfate (Morphine Sulfate 10 Mg/Ml Carp/Vial) 6 mg IV NOW STA Stop: 03/25/23 12:57 Last Admin: 03/25/23 13:06 Dose: 6 mg Documented By: Ondansetron HCl (Ondansetron Inj 2 Mg/Ml 2 Ml Vial) 4 mg IV NOW STA Stop: 03/25/23 12:57 Last Admin: 03/25/23 13:06 Dose: 4 mg Documented By: AB Medical Decision Making Differential Diagnosis Fracture, dislocation, neurovascular compromise, compartment syndrome, soft tissue injury, as well as other pathologies. Home Medications was personally reviewed by me Laboratory Data Attestation: I reviewed the patient's lab results. 03/25/23 11:23 03/25/23 11:23 Lab Results 03/25/23 03/25/23 03/25/23 Range/Units 11: 11: 11:50 WBC 7.92 (4.8-10.8) K/ul RBC 4.77 (4.70-6.10) M/uL Hgb 15.7 (14.0-18.0) g/dl Hct 44.6 (42.0-52.0) % MCV 93.5 (80.0-100.0) fL MCH 32.9 (25.0-34.0) pg MCHC 35.2 (32.0-36.0) g/dL RDW Std Deviation 45.1 (36.4-46.3) fL RDW Coeff of Kojo 13.0 (11.5-14.5) % Plt Count 148 (130-400) K/uL MPV 10.7 (9.4-12.4) fL Immature Gran % (Auto) 0.4 % Neut % (Auto) 72.8 % Lymph % (Auto) 14.4 % Milam % (Auto) 9.8 % Eos % (Auto) 2.1 % Baso % (Auto) 0.5 % Neut # (Auto) 5.76 (1.40-6.50) K/uL Lymph # (Auto) 1.14 L (1.2-3.4) K/uL Milam # (Auto) 0.78 H (0.11-0.59) K/uL Eos # (Auto) 0.17 (0-0.50) K/uL Baso # (Auto) 0.04 (0-0.2) K/uL Immature Gran # (Auto) 0.03 (0.01-0.20) K/uL Sodium 137 (136-145) mmol/L Potassium 3.8 (3.5-5.1) mmol/L Chloride 104 (98-107) mmol/L Carbon Dioxide 27 (21-32) mmol/L Anion Gap 6 (3-11) BUN 14 (6-23) mg/dl Creatinine 0.85 (0.6-1.4) mg/dl Est Cr Clr Drug Dosing 98.1 ml/min Est GFR ( Amer) 100.9 ml/min Est GFR (Non-Af Amer) 87.1 ml/min BUN/Creatinine Ratio 16.5 (10-20) Glucose 109 H (70-99(Fasting)) mg/dl Calcium 9.7 (8.6-10.3) mg/dl Magnesium 1.9 (1.7-2.4) mg/dl Total Bilirubin 1.8 H (0.2-1.0) mg/dl AST 16 (13-39) U/L ALT 29 (7-52) U/L Alkaline Phosphatase 60 (34-104) U/L Total Protein 6.8 (6.0-8.3) gm/dl Albumin 4.0 (3.4-5.0) gm/dl Globulin 2.8 (2.5-4.0) gm/dl Albumin/Globulin Ratio 1.4 (0.9-2) Urine Color Yellow Urine Appearance Clear (Clear) Urine pH 7.0 (4.5-7.5) Ur Specific [place] 1.010 (1.000-1.030) Urine Protein Negative (Negative) Urine Glucose (UA) Negative (Negative) Urine Ketones Negative (Negative) Urine Blood Negative (Negative) Urine Nitrite Negative (Negative) Urine Bilirubin Negative (Negative) Urine Urobilinogen Negative (Negative) Ur Leukocyte Esterase Negative (Negative) SARS-CoV-2, RNA, NAAT (NEGATIVE) 03/25/23 Range/Units 12:29 WBC (4.8-10.8) K/ul RBC (4.70-6.10) M/uL Hgb (14.0-18.0) g/dl Hct (42.0-52.0) % MCV (80.0-100.0) fL MCH (25.0-34.0) pg MCHC (32.0-36.0) g/dL RDW Std Deviation (36.4-46.3) fL RDW Coeff of Kojo (11.5-14.5) % Plt Count (130-400) K/uL MPV (9.4-12.4) fL Immature Gran % (Auto) % Neut % (Auto) % Lymph % (Auto) % [place] % (Auto) % Eos % (Auto) % Baso % (Auto) % Neut # (Auto) (1.40-6.50) K/uL Lymph # (Auto) (1.2-3.4) K/uL Milam # (Auto) (0.11-0.59) K/uL Eos # (Auto) (0-0.50) K/uL Baso # (Auto) (0-0.2) K/uL Immature Gran # (Auto) (0.01-0.20) K/uL Sodium (136-145) mmol/L Potassium (3.5-5.1) mmol/L Chloride (98-107) mmol/L Carbon Dioxide (21-32) mmol/L Anion Gap (3-11) BUN (6-23) mg/dl Creatinine (0.6-1.4) mg/dl Est Cr Clr Drug Dosing ml/min Est GFR ( Amer) ml/min Est GFR (Non-Af Amer) ml/min BUN/Creatinine Ratio (10-20) Glucose (70-99(Fasting)) mg/dl Calcium (8.6-10.3) mg/dl Magnesium (1.7-2.4) mg/dl Total Bilirubin (0.2-1.0) mg/dl AST (13-39) U/L ALT (7-52) U/L Alkaline Phosphatase (34-104) U/L Total Protein (6.0-8.3) gm/dl Albumin (3.4-5.0) gm/dl Globulin (2.5-4.0) gm/dl Albumin/Globulin Ratio (0.9-2) Urine Color Urine Appearance (Clear) Urine pH (4.5-7.5) Ur Specific [place] (1.000-1.030) Urine Protein (Negative) Urine Glucose (UA) (Negative) Urine Ketones (Negative) Urine Blood (Negative) Urine Nitrite (Negative) Urine Bilirubin (Negative) Urine Urobilinogen (Negative) Ur Leukocyte Esterase (Negative) SARS-CoV-2, RNA, NAAT NEGATIVE (NEGATIVE) Imaging Data Attestation: I personally reviewed and interpreted this imaging study as follows: Radiologist's Impression: Femur X-Ray 03/25/23 10:57 LEFT FEMUR 3 VIEWS CLINICAL HISTORY: Fall. Left hip pain. FINDINGS: AP, frog-leg, and lateral views of the left femur are obtained. Correlation is made with radiographs of the left hip dated 10/06/2021. The skeletal structures are osteopenic. There is an impacted subcapital fracture of the left proximal femur with overlying soft tissue edema. The distal femur appears intact. The visualized left hemipelvis is maintained. Mild degenerative changes seen in the left hip and knee joints. There is degenerative sclerosis of the sacroiliac joints and pubic symphysis. Numerous surgical clips project over the pelvis. IMPRESSION: There is an impacted subcapital fracture of the left proximal femur with overlying soft tissue edema. Electronically signed by: Derick Barragan M.D. 03/25/2023 11:49 AM Pelvis X-Ray 03/25/23 10:57 XR pelvis 1-2V routine HISTORY: 72 years-old Male fall, left hip pain acute left hip pain status post fall COMPARISON: Radiographs of same day TECHNIQUE: AP view of the pelvis FINDINGS: Moderate osteoporosis of the hips. There is acute mildly impacted left femoral neck fracture without displacement. No dislocation. Mild lateral hip soft tissue swelling. Surgical clips of the pelvis. IMPRESSION: Acute mildly impacted nondisplaced left femoral neck fracture. ACT 112: Negative or not required by law. The above report was generated using voice recognition software. It may contain grammatical, syntax or spelling errors. Electronically signed by: Sae Low M.D. 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 Patient was noted to be in normal sinus rhythm at an initial rate of 80 bpm. The patient is a 72-year-old male who presents today complaining of left hip pain after a fall last night. Patient did get lightheaded prior to the fall. He did not have a syncopal episode. His labs are unremarkable, with no leukocytosis, anemia or concerning electrolyte abnormalities. Urinalysis is not suggestive of infection. EKG with chronic changes, no arrhythmia. Femur/pelvics x-rays performed and reviewed by radiology. Patient has a left femoral neck fracture. Patient's blood pressure was quite elevated but he admits he did not take his lisinopril today. I did give him a dose of morphine for pain which should help bring the blood pressure down as well. The [facility], who agreed to evaluate the patient for admission and further care. Impression Closed left hip fracture Discharge Plan Visit Data Chief Complaint: Hip Pain Stated Complaint: LEFT HIP PAIN ED Provider: Hardik Barahona ED Midlevel Provider: Maribeth Fofana Discharge Problem: Closed left hip fracture Patient Disposition: Admitted As Inpatient Discharge Instructions Interventions: ED Discharge Assessment Last Done: 03/25/23 15:57
[2023-03-25 11:47] LABS: Basophils # (auto) 0.04 K/uL (0-0.2); Basophils % (auto) 0.5 %; Eosinophils # (auto) 0.17 K/uL (0-0.50); Eosinophils % (auto) 2.1 %; Hematocrit (blood only) 44.6 % (42.0-52.0); Hemoglobin 15.7 g/dl (14.0-18.0); Immature Granulocytes # (auto) 0.03 K/uL (0.01-0.20); Immature Granulocytes % (auto) 0.4 %; Lymphocytes # (auto) 1.14 K/uL (1.2-3.4); Lymphocytes % (auto) 14.4 %; Mean Corpuscular Hemoglobin 32.9 pg (25.0-34.0); Mean Corpuscular Hgb Conc 35.2 g/dL (32.0-36.0); Mean Corpuscular Volume 93.5 fL (80.0-100.0); Mean Platelet Volume 10.7 fL (9.4-12.4); Monocytes # (auto) 0.78 K/uL (0.11-0.59); Monocytes % (auto) 9.8 %; Neutrophils # (auto) 5.76 K/uL (1.40-6.50); Neutrophils % (auto) 72.8 %; Platelet Count 148 K/uL (130-400); RDW Standard Deviation 45.1 fL (36.4-46.3); Red Blood Count 4.77 M/uL (4.70-6.10); White Blood Count 7.92 K/ul (4.8-10.8)
--- NOTE | 2023-03-25 11:50 | XRay Report ---
LEFT FEMUR 3 VIEWS CLINICAL HISTORY: Fall. Left hip pain. FINDINGS: AP, frog-leg, and lateral views of the left femur are obtained. Correlation is made with ra diographs of the left hip dated 10/06/2021. The skeletal structures are osteopenic. There is an impacte d subcapital fracture of the left proximal femur with overlying soft tissue edema. The distal femur a ppears intact. The visualized left hemipelvis is maintained. Mild degenerative changes seen in the le ft hip and knee joints. There is degenerative sclerosis of the sacroiliac joints and pubic symphysis. Numerous surgical clips project over the pelvis. IMPRESSION: There is an impacted subcapital fracture of the left proximal femur with overlying soft t issue edema. Electronically signed by: Derick Barragan M.D. 03/25/2023 11:49 AM
[2023-03-25 11:59] LABS: Albumin Globulin Ratio 1.4 (0.9-2); BUN Creatinine Ratio 16.5 (10-20); Bilirubin,Total 1.8 mg/dl (0.2-1.0); Calcium 9.7 mg/dl (8.6-10.3); Creatinine Clr Calc Pharmacy 98.1 ml/min; Est GFR (African American) 100.9 ml/min; Est GFR (Non-African American) 87.1 ml/min; Globulin 2.8 gm/dl (2.5-4.0); Magnesium 1.9 mg/dl (1.7-2.4); Potassium 3.8 mmol/L (3.5-5.1); Total Protein 6.8 gm/dl (6.0-8.3)
--- NOTE | 2023-03-25 12:08 | XRay Report ---
XR pelvis 1-2V routine HISTORY: 72 years-old Male fall, left hip pain acute left hip pain status post fall COMPARISON: Radiographs of same day TECHNIQUE: AP view of the pelvis FINDINGS: Moderate osteoporosis of the hips. There is acute mildly impacted left femoral neck fracture without displacement. No dislocation. Mild lateral hip soft tissue swelling. Surgical clips of the pelvis. IMPRESSION: Acute mildly impacted nondisplaced left femoral neck fracture. ACT 112: Negative or not required by law. The above report was generated using voice recognition software. It may contain grammatical, syntax o r spelling errors. Electronically signed by: Sae Low M.D. 03/25/2023 12:07 PM
[2023-03-25 12:21] LABS: Appearance Urine Clear (Clear); Bilirubin Urine Negative (Negative); Blood Urine Negative (Negative); Color Urine Yellow; Glucose Urine UA Negative (Negative); Ketones Urine Negative (Negative); Leukocyte Esterase Urine Negative (Negative); Nitrite Urine Negative (Negative); Protein Urine Negative (Negative); Urobilinogen Urine Negative (Negative)
[2023-03-25] MEDS ORDERED: MoRPHine SULFATE 10 MG/ML CARP/VIAL IV STA (12:56)
[2023-03-25] MEDS ORDERED: ONDANSETRON INJ 2 MG/ML 2 ML VIAL IV STA (12:56)
--- NOTE | 2023-03-25 13:37 | History & Physical Report ---
Date of Service March 25, 2023 Assessment & Plan (1) Closed left hip fracture: Plan: 72yo male with history of HTN, HLP and Pre-DM presenting with acute mildlyl impacted nondisplaced left femoral neck fracture following a ground level fall. Patient is neurovascularly intact. Pain is well controlled at present. -Admit to medical -Pain control with Morphine PRN -Zofran as needed for nausea -Orthopedic Surgery consultation appreciated - patient was seen by Dr. Ward in the past - will place consult -Keep NPO after midnight for possible surgery in AM -LR at 100mL/hr x 2L while NPO -Will hold ASA and Lisinopril pre-operatively (2) Hypertension: Plan: Hypertensive urgency with markedly elevated blood pressure upon arrival to the ER to 224/167. No symptoms of headache, visual change, chest pain, SOB, back pain or focal numbness/tingling/weakness. No laboratory evidence of end-organ dysfunction. Patient reports that his blood pressure is high on occasion. Given Hydralazine 5mg IV x 1 dose in the ER with improvement. Blood pressure presently 131/100. -Pain management with Morphine as needed -Holding Lisinopril in charlie-operative setting -Clonidine 0.1mg po TID as needed for blood pressure >180/110 -Continue to monitor (3) Obstructive sleep apnea: Plan: Chronic. Patient has a CPAP at home. He hasn't been using it over the last several weeks but reports he was fairly compliant with it before then. -CPAP qHS (4) Hyperlipidemia: Plan: Chronic. Stable -Continue Simvastatin F/E/N - LR at 100mL/hr x 2 liters, electrolytes WNL, Heart healthy diet and NPO after midnight Ppx - SCDs Code - Full per discussion with patient Dispo - Admit to medical History of Present Illness Chief Complaint: hip pain Primary Care Provider: Basil Orourke MD Mario Isaacs is a pleasant 72yo male with history of hypertension, HLP and VAL presenting with left hip fracture. Patient reports feeling slightly off yesterday 03/24/23 - some brief episodes of dizziness noted with positional changes. Around 18:00 he went to the car to get some papers out. He bent down and got up quickly then became dizzy, lost his balance and fell onto his left hip - ground level fall onto a paved driveway. He denies head trauma or LOC. He had friends nearby that helped him up. Patient did have some discomfort in t he left hip but continue to walk on it. He went out to dinner then home. He was able to sleep last night but had some discomfort. He came to the ER today for continued pain. Patient denies fever, chills, chest pain, palpitations, abdominal pain, nausea, vomiting, diarrhea or constipation. No urinary complaints. In the ER patient is afebrile, hypertensive. He denies pain at present ER Course: Morphine 6mg IV Hydralazine 5mg IV Zofran 4mg IV Allergies Allergy/AdvReac Type Severity Reaction Status Date / Time No Known Allergies Allergy Verified 12/29/22 09:47 Home Medications Medication Instructions Recorded Confirmed Type aspirin 81 mg tablet,delayed 81 mg PO QAM 07/21/19 03/25/23 History release (Adult Low Dose Aspirin) lisinopril 30 mg tablet 30 mg PO QAM #90 tabs 04/16/22 03/25/23 Rx simvastatin 40 mg tablet 40 mg PO QAM #90 tabs 04/16/22 03/25/23 Rx Past Med/Surg History Medical History Abdominal bloating Chest pain Encounter for pre-operative examination Gout History of basal cell carcinoma on face History of Mohs micrographic surgery for skin cancer Hyperlipidemia Hypertension Obstructive sleep apnea cpap Pleural effusion, left Prediabetes Pressure in left side of chest Prostate cancer diagnosed 1999--sx only Surgical History History of colonoscopy with polypectomy History of prostate biopsy malignant History of prostatectomy S/P appendectomy S/P tonsillectomy Family History Grandfather (Maternal) Myocardial infarction Mother Family history of diabetes mellitus Other No family history of adverse response to anesthesia Denies family history of Colon cancer Ovarian cancer Prostate cancer Breast cancer Social History Smoking Status: Never smoker Second Hand Exposure: No; Do You Dip or Chew Tobacco: No; Hx Alcohol Use: Yes Alcohol type: beer, wine and hard liquor Hx Substance Use: No Preferred Language: [place] Communication Ability: Effective Visual Impairment: No Limitations Hearing Ability: Normal Print Developer Automatic Required: No Beliefs That Will Affect Care: None marital status: / Current Living Situation: Alone current occupational status: employed Feels Safe at Home: Yes Childhood Exposure to Second-Hand Smoke: No Dental Care, Regularly: Yes Physical Activity Frequency: 3-4 Times per Week Seatbelt Use: always Sunscreen Use: Yes Assistive Devices: Contacts Review of Systems Review of Systems: All systems reviewed & are unremarkable except as noted in HPI & below Physical Exam Physical Exam: General: patient resting comfortably, NAD, non-toxic in appearance, AA&O x 4 Skin: warm, dry, intact, no rashes or lesions HEENT: NC/AT, PERRL, EOMI, anicteric sclera, conjunctiva without injection, external ear normal to inspection and nontender, nares patent, moist mucus membranes, dentition intact, no oropharyngeal lesions, neck supple, trachea midline, no LAD, no thyromegaly, no JVD Heart: +S1/S2, regular, no m/r/g Lungs: equal air entry bilaterally, no rales/rhonchi/wheezes Abd: +BS, soft, NT/ND, no masses/organomegaly/ascites Ext: warm, 2+ pulses in UE/LE bilaterally, no clubbing/cyanosis or edema, LLE slightly shortened, neurovascularly intact Neuro: nonfocal, patient AA&O x 4, speech intact, no facial droop, moving all extremities on command with equal strength 5/5 Results & Data Results & Data Vital Signs (Past 12 Hours) Vital Signs Temp Pulse Pulse Resp BP BP Pulse Ox 03/25/23 12:35 81 18 224/167 H 97 03/25/23 12:01 81 03/25/23 10:29 36.6 C 86 16 205/106 H 93 O2 Del Method 03/25/23 12:35 Room Air 03/25/23 12:01 03/25/23 10:29 Room Air Laboratory Results Laboratory Results WBC 7.92 K/ul (4.8-10.8) 03/25/23 11:23 RBC 4.77 M/uL (4.70-6.10) 03/25/23 11:23 Hgb 15.7 g/dl (14.0-18.0) 03/25/23 11:23 Hct 44.6 % (42.0-52.0) 03/25/23 11: MCV 93.5 fL (80.0-100.0) 03/25/23 11:23 MCH 32.9 pg (25.0-34.0) 03/25/23 11: MCHC 35.2 g/dL (32.0-36.0) 03/25/23 11: RDW Std Deviation 45.1 fL (36.4-46.3) 03/25/23 11:23 RDW Coeff of [place] 13.0 % (11.5-14.5) 03/25/23 11: Plt Count 148 K/uL (130-400) 03/25/23 11: MPV 10.7 fL (9.4-12.4) 03/25/23 11:23 Immature Gran % (Auto) 0.4 % 03/25/23 11:23 Neut % (Auto) 72.8 % 03/25/23 11:23 Lymph % (Auto) 14.4 % 03/25/23 11:23 [place] % (Auto) 9.8 % 03/25/23 11:23 Eos % (Auto) 2.1 % 03/25/23 11:23 Baso % (Auto) 0.5 % 03/25/23 11: Neut # (Auto) 5.76 K/uL (1.40-6.50) 03/25/23 11: Lymph # (Auto) 1.14 K/uL (1.2-3.4) L 03/25/23 11:23 [place] # (Auto) 0.78 K/uL (0.11-0.59) H 03/25/23 11:23 Eos # (Auto) 0.17 K/uL (0-0.50) 03/25/23 11:23 Baso # (Auto) 0.04 K/uL (0-0.2) 03/25/23 11: Immature Gran # (Auto) 0.03 K/uL (0.01-0.20) 03/25/23 11:23 Sodium 137 mmol/L (136-145) 03/25/23 11:23 Potassium 3.8 mmol/L (3.5-5.1) 03/25/23 11:23 Chloride 104 mmol/L (98-107) 03/25/23 11:23 Carbon Dioxide 27 mmol/L (21-32) 03/25/23 11:23 Anion Gap 6 (3-11) 03/25/23 11:23 BUN 14 mg/dl (6-23) 03/25/23 11:23 Creatinine 0.85 mg/dl (0.6-1.4) 03/25/23 11:23 Est Cr Clr Drug Dosing 98.1 ml/min 03/25/23 11:23 Est GFR ( Amer) 100.9 ml/min 03/25/23 11:23 Est GFR (Non-Af Amer) 87.1 ml/min 03/25/23 11:23 BUN/Creatinine Ratio 16.5 (10-20) 03/25/23 11:23 Glucose 109 mg/dl (70-99(Fasting)) H 03/25/23 11:23 Calcium 9.7 mg/dl (8.6-10.3) 03/25/23 11:23 Magnesium 1.9 mg/dl (1.7-2.4) 03/25/23 11:23 Total Bilirubin 1.8 mg/dl (0.2-1.0) H 03/25/23 11:23 AST 16 U/L (13-39) 03/25/23 11:23 ALT 29 U/L (7-52) 03/25/23 11:23 Alkaline Phosphatase 60 U/L (34-104) 03/25/23 11:23 Total Protein 6.8 gm/dl (6.0-8.3) 03/25/23 11:23 Albumin 4.0 gm/dl (3.4-5.0) 03/25/23 11:23 Globulin 2.8 gm/dl (2.5-4.0) 03/25/23 11:23 Albumin/Globulin Ratio 1.4 (0.9-2) 03/25/23 11:23 Urine Color Yellow 03/25/23 11:50 Urine Appearance Clear (Clear) 03/25/23 11:50 Urine pH 7.0 (4.5-7.5) 03/25/23 11:50 Ur Specific [place] 1.010 (1.000-1.030) 03/25/23 11:50 Urine Protein Negative (Negative) 03/25/23 11:50 Urine Glucose (UA) Negative (Negative) 03/25/23 11:50 Urine Ketones Negative (Negative) 03/25/23 11:50 Urine Blood Negative (Negative) 03/25/23 11:50 Urine Nitrite Negative (Negative) 03/25/23 11:50 Urine Bilirubin Negative (Negative) 03/25/23 11:50 Urine Urobilinogen Negative (Negative) 03/25/23 11:50 Ur Leukocyte Esterase Negative (Negative) 03/25/23 11:50 SARS-CoV-2, RNA, NAAT NEGATIVE (NEGATIVE) 03/25/23 12:29 Impressions Femur X-Ray 03/25/23 10:57 LEFT FEMUR 3 VIEWS CLINICAL HISTORY: Fall. Left hip pain. FINDINGS: AP, frog-leg, and lateral views of the left femur are obtained. Correlation is made with radiographs of the left hip dated 10/06/2021. The skeletal structures are osteopenic. There is an impacted subcapital fracture of the left proximal femur with overlying soft tissue edema. The distal femur appears intact. The visualized left hemipelvis is maintained. Mild degenerative changes seen in the left hip and knee joints. There is degenerative sclerosis of the sacroiliac joints and pubic symphysis. Numerous surgical clips project over the pelvis. IMPRESSION: There is an impacted subcapital fracture of the left proximal femur with overlying soft tissue edema. Electronically signed by: Derick Barragan M.D. 03/25/2023 11:49 AM Pelvis X-Ray 03/25/23 10:57 XR pelvis 1-2V routine HISTORY: 72 years-old Male fall, left hip pain acute left hip pain status post fall COMPARISON: Radiographs of same day TECHNIQUE: AP view of the pelvis FINDINGS: Moderate osteoporosis of the hips. There is acute mildly impacted left femoral neck fracture without displacement. No dislocation. Mild lateral hip soft tissue swelling. Surgical clips of the pelvis. IMPRESSION: Acute mildly impacted nondisplaced left femoral neck fracture. ACT 112: Negative or not required by law. The above report was generated using voice recognition software. It may contain grammatical, syntax or spelling errors. Electronically signed by: Sae Low M.D. 03/25/2023 12:07 PM ECG Additional Comments: Test Reason : Blood Pressure : / mmHG Vent. Rate : 078 BPM Atrial Rate : 078 BPM P-R Int : 224 ms QRS Dur : 146 ms QT Int : 404 ms P-R-T Axes : 046 -46 005 degrees QTc Int : 460 ms Sinus rhythm with 1st degree A-V block Right bundle branch block Left anterior fascicular block Bifascicular block Inferior infarct , age undetermined Abnormal ECG When compared with ECG of 28-MAY-2021 12:56, Left anterior fascicular block is now Present Inferior infarct is now Present Confirmed by Basil Elizabeth ([id number]) on 03/25/2023 3:40:28 PM Referred By: Confirmed By:Basil Elizabeth Code Status & VTE Plan VTE Prophylaxis Plan VTE Prophylaxis will be ordered: Yes PG Care Time/CCT Total # of Minutes Spent Total Time Spent with Patient: Total time spent is greater than 50% in coordination of care (as documented) at patient's floor/unit and/or counseling patient: Coding Level of Care Code 14014 INT INP/OBS CARE 2/55MIN Diagnoses Closed left hip fracture S72.002A Hypertension I10 Obstructive sleep apnea G47.33 Hyperlipidemia E78.5
[2023-03-25] MEDS ORDERED: hydrALAZINE HCL 20 MG/ML VIAL IV ONE (15:24)
[2023-03-25] MEDS ORDERED: hydrALAZINE HCL 20 MG/ML VIAL ONE (15:26)
--- NOTE | 2023-03-25 15:40 | Electrocardiogram Report ---
Test Reason : Blood Pressure : / mmHG Vent. Rate : 078 BPM Atrial Rate : 078 BPM P-R Int : 224 ms QRS Dur : 146 ms QT Int : 404 ms P-R-T Axes : 046 -46 005 degrees QTc Int : 460 ms Sinus rhythm with 1st degree A-V block Right bundle branch block Left anterior fascicular block Bifascicular block Inferior infarct , age undetermined Abnormal ECG When compared with ECG of 28-MAY-2021 12:56, Left anterior fascicular block is now Present Inferior infarct is now Present Confirmed by Basil Elizabeth ([id number]) on 03/25/2023 3:40:28 PM Referred By: Confirmed By:Basil Elizabeth
[2023-03-25] MEDS ORDERED: bisacodyL 10 MG SUPP PR PRN (16:13)
[2023-03-25] MEDS ORDERED: ACETAMINOPHEN 325 MG TAB PO PRN (16:13)
[2023-03-25] MEDS ORDERED: cloNIDine HCL 0.1 MG TAB PO PRN (16:13)
[2023-03-25] MEDS ORDERED: MoRPHine SULFATE 4 MG/ML 1 ML CARP\\VIAL IV PRN (16:13)
[2023-03-25] MEDS ORDERED: MAGNESIUM HYDROXIDE SUSP 30 ML UDC PO PRN (16:13)
[2023-03-25] MEDS ORDERED: NALOXONE HCL 0.4 MG/1 ML VIAL/CARP IV PRN (16:13)
[2023-03-25] MEDS ORDERED: ONDANSETRON INJ 2 MG/ML 2 ML VIAL IV PRN (16:13)
[2023-03-25] MEDS ORDERED: lisinopril 10 MG TAB PO STA (16:55)
[2023-03-25] MEDS: MoRPHine SULFATE 2 MG/ML CARP IV PRN ×2 (20:08→23:25)
[2023-03-25] MEDS: DOCUSATE SODIUM/SENNA 50/8.6MG TAB PO SCH (20:09)
[2023-03-26] MEDS: LACTATED RINGER'S 1,000 ML IV SCH ×2 (00:03→09:58)
[2023-03-26] MEDS: MoRPHine SULFATE 2 MG/ML CARP IV PRN (05:56)
[2023-03-26 07:18] LABS: Basophils # (auto) 0.03 K/uL (0-0.2); Basophils % (auto) 0.4 %; Eosinophils # (auto) 0.13 K/uL (0-0.50); Eosinophils % (auto) 1.7 %; Hematocrit (blood only) 43.6 % (42.0-52.0); Hemoglobin 14.8 g/dl (14.0-18.0); Immature Granulocytes # (auto) 0.03 K/uL (0.01-0.20); Immature Granulocytes % (auto) 0.4 %; Lymphocytes # (auto) 1.06 K/uL (1.2-3.4); Lymphocytes % (auto) 13.7 %; Mean Corpuscular Hemoglobin 32.3 pg (25.0-34.0); Mean Corpuscular Hgb Conc 33.9 g/dL (32.0-36.0); Mean Corpuscular Volume 95.2 fL (80.0-100.0); Mean Platelet Volume 10.6 fL (9.4-12.4); Monocytes # (auto) 0.86 K/uL (0.11-0.59); Monocytes % (auto) 11.1 %; Neutrophils # (auto) 5.63 K/uL (1.40-6.50); Neutrophils % (auto) 72.7 %; Platelet Count 136 K/uL (130-400); RDW Coefficient of Variation 13.2 % (11.5-14.5); RDW Standard Deviation 46.3 fL (36.4-46.3); Red Blood Count 4.58 M/uL (4.70-6.10); White Blood Count 7.74 K/ul (4.8-10.8)
--- NOTE | 2023-03-26 07:28 | Orthopedic Consultation ---
Date of Service March 26, 2023 Assessment & Plan (1) Closed left hip fracture: Patient has been admitted by the medicine service. He has been medically evaluated. Patient is a valgus impacted femoral neck fracture without underlying arthritis. This is some best treated with cannulated screw fixation. We discussed treatment options with the patient and he would like to proceed. The risks and benefits of internal fixation of a valgus impacted femoral neck fracture explained and discussed. These include but not limited to DVT PE infection neurological and vascular bleeding palm pain limb range of motion test is fairly with symptoms incomplete relief. Need for further surgery in the future exceptor. The patient understands and desires to proceed. Informed consent was obtained. We will plan on DVT prophylaxis including thigh-high teds SCDs and aspirin postoperatively. He does live by himself. He is fairly healthy and will likely be able to manage this with walker postoperatively. History of Present Illness Reason for Consultation: . Left hip fracture Requesting Physician: . Attending Physician: Donna Vergara DO . Patient 72-year-old very active gentleman who was admitted yesterday with a left hip fracture. He is very active. On evening he was getting into his car and had a loss of balance this just temporarily. He had a mechanical fall and laying on his left hip. He had the cute onset of left hip pain and discomfort. He was able to get up and go to dinner but is had pain and difficulty ambulating. He called and Dr. Orourke's office and came to the ER yesterday and x-rays revealed a valgus impacted femoral neck fracture. He has been admitted by the medicine service. Were consulted for treatment. No real pre-existing hip pain. Has had some intermittent back pain and seen Dr. Ward in the past. Has been through some therapy. Denies any other injuries. Allergies Allergy/AdvReac Type Severity Reaction Status Date / Time No Known Allergies Allergy Verified 12/29/22 09:47 Home Medications Medication Instructions Recorded Confirmed Type aspirin 81 mg tablet,delayed 81 mg PO QAM 07/21/19 03/25/23 History release (Adult Low Dose Aspirin) lisinopril 30 mg tablet 30 mg PO QAM #90 tabs 04/16/22 03/25/23 Rx simvastatin 40 mg tablet 40 mg PO QAM #90 tabs 04/16/22 03/25/23 Rx Past Med/Surg History Medical History Abdominal bloating Chest pain Encounter for pre-operative examination Gout History of basal cell carcinoma on face History of Mohs micrographic surgery for skin cancer Hyperlipidemia Hypertension Obstructive sleep apnea cpap Pleural effusion, left Prediabetes Pressure in left side of chest Prostate cancer diagnosed 1999--sx only Surgical History History of colonoscopy with polypectomy History of prostate biopsy malignant History of prostatectomy S/P appendectomy S/P tonsillectomy Family History Grandfather (Maternal) Myocardial infarction Mother Family history of diabetes mellitus Other No family history of adverse response to anesthesia Denies family history of Colon cancer Ovarian cancer Prostate cancer Breast cancer Social History Smoking Status: Never smoker Second Hand Exposure: No; Do You Dip or Chew Tobacco: No; Hx Alcohol Use: Yes Alcohol type: beer, wine and hard liquor Hx Substance Use: No Preferred Language: Somali Communication Ability: Effective Visual Impairment: No Limitations Hearing Ability: Normal Fur Blower Operator Required: No Beliefs That Will Affect Care: None marital status: / Current Living Situation: Alone current occupational status: employed Feels Safe at Home: Yes Childhood Exposure to Second-Hand Smoke: No Dental Care, Regularly: Yes Physical Activity Frequency: 3-4 Times per Week Seatbelt Use: always Sunscreen Use: Yes Assistive Devices: Glasses Review of Systems All systems reviewed & are unremarkable except as noted in HPI & below. Physical Exam . Physical examination reveals a healthy pleasant middle-age male. He is lying in bed looks pretty comfortable. Examination of the left hip and leg reveals no visible deformity. There is no bruising or swelling. His leg lengths equal. He does have difficulty lifting his leg. He can do a straight leg raise but it is quite painful and difficult. He does have pain with passive hip motion. There is no knee effusion. He is neurologically intact. Results & Data Results & Data Laboratory Results . Diagnostic Findings . X-rays of the left hip and pelvis reveal a valgus impacted femoral neck fracture. No significant underlying hip arthritis. No underlying bony pathology. PG Care Time/CCT Total # of Minutes Spent Total Time Spent with Patient: Total time spent is greater than 50% in coordination of care (as documented) at patient's floor/unit and/or counseling patient: Coding Level of Care Code 94440 IN/OBS CONSULT LVL 5,80M Diagnoses Closed left hip fracture S72.002A
[2023-03-26 07:46] LABS: BUN Creatinine Ratio 13.8 (10-20); Calcium 9.4 mg/dl (8.6-10.3); Creatinine Clr Calc Pharmacy 95.7 ml/min; Est GFR (African American) 99.9 ml/min; Est GFR (Non-African American) 86.2 ml/min
--- NOTE | 2023-03-26 07:49 | Anesthesiology Consultation ---
Date of Service March 26, 2023 Assessment & Plan Chart Review Chart Review: Acceptable Risk for Surgery and Patient NOT seen in Pre Admission Testing Consults Requested none ASA ASA3 Proposed Anesthesia Anesthesia Type: General History Surgery Operation Date: 03/26/23 10:30 Proposed Procedures p Left Hip Cannulated Screw Fixation - Juan Vergara MD Height/Weight Height: 6 ft Weight: 104 kg Allergies Allergy/AdvReac Type Severity Reaction Status Date / Time No Known Allergies Allergy Verified 12/29/22 09:47 Medications Home Medications Medication Instructions Recorded Confirmed Last Taken aspirin 81 mg tablet,delayed 81 mg PO QAM 07/21/19 03/25/23 03/24/23 release (Adult Low Dose Aspirin) lisinopril 30 mg tablet 30 mg PO QAM #90 tabs 04/16/22 03/25/23 03/24/23 simvastatin 40 mg tablet 40 mg PO QAM #90 tabs 04/16/22 03/25/23 03/24/23 Active Medications Generic Name Dose Route Start Last Admin Trade Name Freq PRN Reason Stop Dose Admin Lactated Ringer's 1,000 mls @ 100 mls/hr 03/26/23 00:01 03/26/23 00:03 Lr IV 03/26/23 20:00 100 mls/hr .Q10H XAVIER Administration Morphine Sulfate 2 mg 03/25/23 16:13 03/26/23 05:56 Morphine Sulfate 2 Mg/Ml Carp IV 04/08/23 16:12 2 mg Q3H PRN Administration Pain (1,2,3,4,5) & Pre PT Senna/Docusate Sodium 2 tab 03/25/23 21:00 03/25/23 20:09 Docusate Sodium/Senna 50/8.6mg Tab PO 04/24/23 20:59 2 tab HS XAVIER Administration Past Medical History Medical History Abdominal bloating Chest pain Encounter for pre-operative examination Gout History of basal cell carcinoma on face History of Mohs micrographic surgery for skin cancer Hyperlipidemia Hypertension Obstructive sleep apnea cpap Pleural effusion, left Prediabetes Pressure in left side of chest Prostate cancer diagnosed 1999--sx only Exercise / Class Metabolic Activity III < 4 Walking/Shop/Light housework Past Family History Family History Grandfather (Maternal) Myocardial infarction Mother Family history of diabetes mellitus Other No family history of adverse response to anesthesia Denies family history of Colon cancer Ovarian cancer Prostate cancer Breast cancer Past Surgical History Surgical History History of colonoscopy with polypectomy History of prostate biopsy malignant History of prostatectomy S/P appendectomy S/P tonsillectomy Past Anesthesia History No Hx of Anesthesia Complications and No Family Hx of Anesthesia Complications History of PONV No Hx of PONV and No Hx of Motion Sickness Social History Smoking Status: Never smoker Do You Dip or Chew Tobacco: No Hx Alcohol Use: Yes Alcohol type: beer, wine and hard liquor alcohol intake frequency: 0-2 drinks per day Hx Substance Use: No substance use type: does not use Physical Exam Vital Signs Last Vital Signs Temp 37.1 C 03/26/23 03:58 Pulse 84 03/26/23 07:12 Resp 18 03/26/23 03:58 BP 160/91 H 03/26/23 03:58 Pulse Ox 94 03/26/23 03:58 O2 Del Method Room Air 03/26/23 03:58 Testing Laboratory Results 03/26/23 06:16 03/26/23 06:16 Urine Color Yellow 03/25/23 11:50 Urine Appearance Clear (Clear) 03/25/23 11:50 Urine pH 7.0 (4.5-7.5) 03/25/23 11:50 Ur Specific [place] 1.010 (1.000-1.030) 03/25/23 11:50 Urine Protein Negative (Negative) 03/25/23 11:50 Urine Glucose (UA) Negative (Negative) 03/25/23 11:50 Urine Ketones Negative (Negative) 03/25/23 11:50 Urine Nitrite Negative (Negative) 03/25/23 11:50 Ur Leukocyte Esterase Negative (Negative) 03/25/23 11:50 Blood Type O Positive 03/25/23 18:34 Antibody Screen NEGATIVE 03/25/23 18:34 Electrocardiogram Date: 03/25/23 Findings: + NSR @ (@ 78;1st degree block;RBBB;LAFB;Bifascicular block;? infer. infarct) and + RBBB
[2023-03-26] MEDS: SIMVASTATIN 40 MG TAB PO SCH (09:08)
--- NOTE | 2023-03-26 09:43 | XRay Report ---
XR chest 1V portable CLINICAL HISTORY: mild hypoxia, fever; r/o pneumonia TECHNIQUE: Single frontal radiograph of the chest was obtained. Comparison: Comparison is made to chest radiograph 06/30/2031 FINDINGS: No lines and tubes are seen. Calcified aortic knob is seen. The lungs are clear. No evidence of pleur al effusion or pneumothorax. IMPRESSION: No acute abnormalities and in particular no radiographic evidence of pneumonia. ACT 112: Negative or not required by law. Electronically signed by: Ron Oliveira M.D. 03/26/2023 9:42 AM
--- NOTE | 2023-03-26 10:15 | Ultrasound Report ---
ULTRASOUND OF THE CAROTID ARTERIES CLINICAL HISTORY: syncope COMPARISON: None available at the time of this dictation. TECHNIQUE: Real-time, grayscale, and color Doppler sonography of the carotid arteries is performed. I mages are reviewed in the transverse and longitudinal planes. FINDINGS: The carotid arteries are patent bilaterally and demonstrate antegrade flow. There is moderate atheros clerotic plaque on the right and moderate atherosclerotic plaque on the left. Normal doppler arterial waveforms are seen throughout. Velocity measurements are listed below. Common carotid peak systolic velocity (cm/sec): RIGHT: 123 LEFT: 106 ICA peak systolic velocity (cm/sec): RIGHT: 84 LEFT: 57 ICA/CC peak systolic ratio: RIGHT: 0.68 LEFT: 0.54 Antegrade flow was shown in the vertebral arteries. The external carotid arteries are patent. IMPRESSION: 1. There is no sonographic evidence of hemodynamically significant stenosis in the right or left car otid arterial system. 2. Antegrade flow is shown in the vertebral arteries. Society of Radiologists in Ultrasound consensus guidelines: Normal: ICA PSV is <125 cm/sec and no plaque or intimal thickening is visible sonographically additional criteria include ICA/CCA PSV ratio <2.0 and ICA EDV <40 cm/sec <50% ICA stenosis: ICA PSV is <125 cm/sec and plaque or intimal thickening is visible sonographically additional criteria include ICA/CCA PSV ratio <2.0 and ICA EDV <40 cm/sec 50-69% ICA stenosis: ICA PSV is 125-230 cm/sec and plaque is visible sonographically additional criteria include ICA/CCA PSV ratio of 2.0-4.0 and ICA EDV of 40-100 cm/sec ?70% ICA stenosis but less than near occlusion: ICA PSV is >230 cm/sec and visible plaque and luminal narrowing are seen at mane-scale and color Dopp ler ultrasound (the higher the Doppler parameters lie above the threshold of 230 cm/sec, the greater the likelihood of severe disease) additional criteria include ICA/CCA PSV ratio >4 and ICA EDV >100 cm/sec ACT 112: Negative or not required by law. Electronically signed by: Ron Oliveira M.D. 03/26/2023 10:13 AM
[2023-03-26] MEDS ORDERED: ONDANSETRON INJ 2 MG/ML 2 ML VIAL ONE (10:32)
[2023-03-26] MEDS ORDERED: fentaNYL citrate PF 100 MCG/2 ML VIAL ONE (10:34)
[2023-03-26] MEDS ORDERED: MIDAZOLAM HCL 1 MG/ML 2ML VIAL ONE (10:34)
[2023-03-26] MEDS ORDERED: ceFAZolin 2,000 MG/15 ML IV PUSH IV ONE (10:38)
[2023-03-26] MEDS ORDERED: BUPIVACAINE/EPINEPHRINE 0.5% MPF 1:200,000 30 ML VIAL ONE (10:44)
[2023-03-26] MEDS ORDERED: PROMETHAZINE HCL 12.5 MG in SODIUM CHLORIDE 0.9% 50 ML IV PRN (11:29)
[2023-03-26] MEDS ORDERED: fentaNYL citrate PF 100 MCG/2 ML VIAL IV PRN (11:29)
[2023-03-26] MEDS ORDERED: HYDROmorphone INJ 1 MG/ML SYRINGE IV PRN (11:29)
[2023-03-26] MEDS ORDERED: FLUMAZENIL 0.1 MG/1 ML 10 ML VIAL IV PRN (11:29)
[2023-03-26] MEDS ORDERED: LABETALOL HCL IV 5 MG/ML 20ML IV PRN (11:29)
[2023-03-26] MEDS ORDERED: NALOXONE HCL 0.4 MG/1 ML VIAL/CARP IV PRN (11:29)
[2023-03-26] MEDS ORDERED: ePHEDrine sulfate 50 MG/ML AMP IV PRN (11:29)
[2023-03-26] MEDS ORDERED: ATROPINE SULFATE 0.1 MG/ML 10ML SYR IV PRN (11:29)
[2023-03-26] MEDS ORDERED: ONDANSETRON INJ 2 MG/ML 2 ML VIAL IV PRN (11:29)
[2023-03-26] MEDS ORDERED: SUGAMMADEX SODIUM 200 MG/2 ML VIAL IV ONE (11:41)
--- NOTE | 2023-03-26 11:59 | Operative Report ---
PG Post Operative Report Pre & Post Diagnosis Operation Date: 03/26/23 10:30 Preop diagnosis: Left valgus impacted femoral neck fracture. Postop diagnosis: Left valgus impacted femoral neck fracture I identified the patient and participated in the time-out.: Yes Procedure Operation Date: 03/26/23 10:30 Cannulated screw fixation of valgus impacted femoral neck fracture Surgeon Juan Vergara MD Postmaster Relief Dax Bonilla PA-C Estimated Blood Loss 20 Findings Consistent with Post-Op Diagnosis Specimens None Anesthesia Type General Complications none Disposition Accompanied Patient To Recovery: No Indications Patient is a 72-year-old fairly active gentleman who sustained a fall 2 days ago. He was getting into his car when he lost his balance got a little lightheaded and fell on his left hip. The cute onset of pain. He was brought to the emergency room yesterday where x-rays were valgus impacted femoral neck fracture. He was admitted by the medicine service, medically optimized indicated for surgical fixation. Description of Procedure Operative implants consist of: 1 Synthes 7.3 partially-threaded long threaded cannulated screws x3. 2. Synthes 7.3 cannulated screw washer. The patient was taken the operating, identified, placed on the operating table supine position protectors were properly padded. IV antibiotics are by the anesthesia team. A general anesthetic was implemented. The patient was then placed on the fracture table. The left leg was placed in boot traction and the right leg was placed in a well leg padilla. I applied some longitudinal traction to the femur/left leg and internally rotated it so the kneecap pointed to the ceiling. X-ray was brought in and the fracture was appropriately aligned in both the AP and lateral planes. It was valgus impacted. The left hip was then scrubbed with a Hibiclens, prepped with ChloraPrep and draped in usual sterile fashion. A 5 cm incision was made over the lateral aspect of the thigh in the area of the screw incision site. Sharp dissection Through subcutaneous tissue down the IT band. The IT band was incised longitudinally. The vastus lateralis was retracted anteriorly. I then placed 3 guidewires in the femoral neck. The most inferior was at the level of the lesser trochanter. I then used the parallel guide to place the 2 superior guidewires 1 and as far posterior as possible and the one as far as anterior possible. These were placed in the superior aspect of the femoral neck. Position was verified fluoroscopically. I then placed 3 screws over these guidewires with the superior posterior screw with a washer. We got excellent purchase with all 3 screws. Some final x-rays were obtained. Attention drawn toward closing. The wounds irrigated cosigns pulsatile lavage solution. I injected locally with 30 cc of half percent Marcaine with epinephrine. The IT band was then closed with 0 Vicryl suture running fashion. The subcutaneous tissues were closed with 2-0 Dexon suture in buried interrupted fashion skin was closed skin lucas. Leg was then cleaned and dried and sterile dressed with Xeroform, 4 x 4's, Tegaderm dressing was applied. The patient was then taken off the fracture table and placed back on the transport bed. He was then brought out of general esthesia and transferred to the recovery room in stable condition. The patient tolerated procedure well and there were no complications. Dax Bonilla, my physician case assistant, was present for the entire procedure. His assistance was required for proper patient positioning, prepping and draping, surgical exposure, retraction, perform the technical details the operation, closure of the incision site and placement of sterile bandage. I attest to the content of the Intraoperative Record and any orders documented therein. Any exceptions are noted below.
[2023-03-26] MEDS ORDERED: ROCURONIUM BROMIDE 10 MG/ML 5 ML VIAL IV ONE (12:10)
[2023-03-26] MEDS ORDERED: PROPOFOL IV EMULSION 10 MG/ML 20 ML VIAL IV ONE (12:10)
[2023-03-26] MEDS ORDERED: LIDOCAINE 2% 2 ML VIAL/AMP(20MG/ML) INFIL ONE (12:10)
--- NOTE | 2023-03-26 12:40 | Anesthesiology Progress Note ---
Date of Service March 26, 2023 Anesthesia Post Procedure Vital Signs Vital Signs: Temp Pulse Pulse Pulse Resp BP BP 03/26/23 12:25 82 17 146/81 H 03/26/23 12:15 80 15 145/67 H 03/26/23 12:05 84 14 127/82 03/26/23 12:35 36.4 C L 79 14 143/75 H 03/26/23 11:58 36.2 C L 84 22 142/82 H 03/26/23 08:01 37.3 C 88 18 160/82 H 03/26/23 07:12 84 03/26/23 03:58 37.1 C 88 18 160/91 H 03/26/23 00:34 101 H 03/25/23 23:26 37.0 C 93 H 18 151/81 H 03/25/23 21:53 37.6 C H 99 H 18 160/94 H 03/25/23 20:03 36.6 C 105 H 18 153/84 H 03/25/23 20:13 03/25/23 20:13 03/25/23 18:41 173/88 H 03/25/23 17:01 175/89 H 03/25/23 16:14 36.9 C 92 H 18 179/83 H 03/25/23 15:54 90 131/100 03/25/23 14:40 81 18 180/103 H Pulse Ox Pulse Ox O2 Del Method O2 Del Method O2 Flow Rate 03/26/23 12:25 95 Nasal Cannula 4 03/26/23 12:15 94 Oxymask 4 03/26/23 12:05 94 Oxymask 6 03/26/23 12:35 97 Nasal Cannula 3 03/26/23 11:58 95 Oxymask 10 03/26/23 08:01 90 Room Air 03/26/23 07:12 03/26/23 03:58 94 Room Air 03/26/23 00:34 03/25/23 23:26 94 Room Air 03/25/23 21:53 91 Room Air 03/25/23 20:03 92 Room Air 03/25/23 20:13 92 Room Air 03/25/23 20:13 Room Air 03/25/23 18:41 03/25/23 17:01 03/25/23 16:14 94 Room Air 06/23/23 15:54 94 Room Air 03/25/23 14:40 94 Pain Intensity Left Hip: Pain Intensity: 2 Transfer of Care Handoff Completed per policy Notes Mental Status: alert / awake / arousable Patient Amnestic to Procedure: Yes Nausea / Vomiting: adequately controlled Pain: adequately controlled Airway Patency, RR, SpO2: stable & adequate BP & HR: stable & adequate Hydration State: stable & adequate Anesthetic Complications: no major complications apparent
[2023-03-26] MEDS ORDERED: COUGH DROP (SUGAR FREE) LOZ 24 LOZ/1 BOX BUCCAL PRN (13:07)
--- NOTE | 2023-03-26 13:53 | Fluoroscopy Report ---
FL hip LT 2-3V CLINICAL HISTORY: LT HIP CANNULATED SCREW FIXATION TECHNIQUE: 2 views were obtained with the C-arm in the OR with the above procedure. Total fluoroscopy time was 67.0 seconds. Radiation dose was 26.7 mGy. Comparison: Comparison is made to pelvis radiograph 03/25/2023 FINDINGS/IMPRESSION: Intraoperative images were obtained of screw fixation of the left hip fracture. Please correlate with intraoperative fluoroscopy and operative report. ACT 112: Negative or not required by law. Electronically signed by: Ron Oliveira M.D. 03/26/2023 1:51 PM
[2023-03-26] MEDS: SODIUM CHLORIDE 0.9% 1000ML 1,000 ML IV SCH (14:09)
[2023-03-26] MEDS ORDERED: LORazepam 1 MG TAB PO PRN (17:15)
[2023-03-26] MEDS ORDERED: FOLIC ACID 1 MG in SYRINGE 9.8 ML IV STA (17:18)
--- NOTE | 2023-03-26 17:32 | XCELERA ---
[id number]
[2023-03-26] MEDS: DOXYCYCLINE HYCLATE 100 MG CAP PO SCH ×2 (18:37→20:21)
[2023-03-26] MEDS: THIAMINE HCL 500 MG in SODIUM CHLORIDE 0.9% 50 ML IV SCH (18:38)
[2023-03-26] MEDS: ceFAZolin 2000MG 2,000 MG/15 ML SYR IV SCH (18:38)
--- NOTE | 2023-03-26 19:22 | Hospitalist Progress Note ---
Date of Service March 26, 2023 Assessment & Plan (1) Pathological fracture of hip due to age-related osteoporosis: Plan: left s/p ORIF by Dr Vergara today appreciate his assistance pain control gentle IVF overnight check 25-OH vit D level am DVT proph - asa 81mg BID PT, OT evals (2) Fever: Plan: Tm 37.6 last pm pt unaware of such no recent infectious symptoms [place] has had Lyme disease in the past checked anaplasmosis smear --> negative send DNA test am check Lyme screen start empiric doxy 100mg BID cxr w/o infiltrates u/a without signs of UTI monitor vitals (3) Hypertension: Plan: Hypertensive urgency with markedly elevated blood pressure upon arrival to the ER to 224/167. BPs markedly improved. severe HTN 2nd pain? etoh withdrawal? noncompliance with CPAP for VAL? other? resume lisinopril as needed trend BPs (4) Obstructive sleep apnea: Plan: Chronic. Patient has a CPAP at home. He hasn't been using it over the last several weeks but reports he was fairly compliant with it before then. CPAP qHS (5) Hyperlipidemia: Plan: Continue Simvastatin Check CPK in am due to fall (6) Syncope: Plan: He had prodromal dizziness/disorientation then had brief syncope He had been feeling dizzy earlier in the day at a dental office visit Echo with preserved EF and normal valves Carotid duplex wnl Obtain CT head in am Check CT c-spine to r/o fracture due to fall Cont telemetry (7) Alcohol abuse: Plan: Start AWSS protocol ativan prn folate thiamine watch for development of DTs (8) DVT prophylaxis: Plan: asa 81mg BID Admission and Anticipated Discharge Date Admission Date: March 25, 2023 Subjective saw patient post-left hip repair he was resting comfortably in bed friends from [place] were visiting he reports that he had dental work on he felt dizzy after getting up from the dental chair and upon leaving the dental office then, later that afternoon, he was helping to build a fence finally, when he was in his car trying to get papers, he was bending down when he felt "disoriented" he then felt dizzy and went to the ground suspected syncope at that time amazingly was able to ambulate that night and did not seek medical attention until Tuesday am patient admits to daily etoh consumption - 2-3 drinks/day his friend reports that the amount he drinks is higher Review of Systems Review of Systems: gen - had temp last pm but was not aware of it; patient has had lyme disease in the past cv - no cp, no orthopnea pulm - no dyspnea GI - no abd pain or nausea/emesis Physical Exam Physical Exam: gen - NAD, lying comfortably in bed mouth - MMM neck - no JVD heart - RRR, s1 s2, no murmur lungs - CTA b/l abd - soft NT ND BS+ ext - no edema, pulses 2+ b/l musculo - left hip dressings in place neuro - strength 5/5 x 4 exts; no facial droop Results & Data Results & Data Vital Signs (Past 12 Hours) Vital Signs Temp Pulse Pulse Resp BP BP Pulse Ox 03/26/23 15:57 37.0 C 88 18 144/89 H 93 03/26/23 14:09 97 H 20 92 03/26/23 13:45 88 18 160/83 H 93 03/26/23 13:21 81 18 151/77 H 95 03/26/23 13:08 37.0 C 81 20 96 03/26/23 12:45 37 C 78 12 147/70 H 95 03/26/23 12:25 82 17 146/81 H 95 03/26/23 12:15 80 15 145/67 H 94 03/26/23 12:05 84 14 127/82 94 03/26/23 12:35 36.4 C L 79 14 143/75 H 97 03/26/23 11:58 36.2 C L 84 22 142/82 H 95 03/26/23 08:01 37.3 C 88 18 160/82 H 90 O2 Del Method O2 Flow Rate 03/26/23 15:57 Nasal Cannula 2 03/26/23 14:09 Nasal Cannula 3 03/26/23 13:45 Nasal Cannula 3 03/26/23 13:21 Nasal Cannula 3 03/26/23 13:08 Nasal Cannula 3 03/26/23 12:45 Nasal Cannula 3 03/26/23 12:25 Nasal Cannula 4 03/26/23 12:15 Oxymask 4 03/26/23 12:05 Oxymask 6 03/26/23 12:35 Nasal Cannula 3 03/26/23 11:58 Oxymask 10 03/26/23 08:01 Room Air Laboratory Results Laboratory Results - last 24 hr 03/25/23 03/25/23 03/25/23 11:23 18:34 23:31 WBC RBC Hgb Hct MCV MCH MCHC RDW Std Deviation RDW Coeff of Kojo Plt Count MPV Immature Gran % (Auto) Neut % (Auto) Lymph % (Auto) [place] % (Auto) Eos % (Auto) Baso % (Auto) Neut # (Auto) Lymph # (Auto) [place] # (Auto) Eos # (Auto) Baso # (Auto) Immature Gran # (Auto) Sodium Potassium Chloride Carbon Dioxide Anion Gap BUN Creatinine Est Cr Clr Drug Dosing Est GFR ( Amer) Est GFR (Non-Af Amer) BUN/Creatinine Ratio Glucose Calcium Troponin I High Sens Cancelled 7.6 Anaplasma Smear Blood Type O Positive Antibody Screen NEGATIVE 03/26/23 03/26/23 03/26/23 06:16 06:16 09:28 WBC 7.74 RBC 4.58 L Hgb 14.8 Hct 43.6 MCV 95.2 MCH 32.3 MCHC 33.9 RDW Std Deviation 46.3 RDW Coeff of Kojo 13.2 Plt Count 136 MPV 10.6 Immature Gran % (Auto) 0.4 Neut % (Auto) 72.7 Lymph % (Auto) 13.7 [place] % (Auto) 11.1 Eos % (Auto) 1.7 Baso % (Auto) 0.4 Neut # (Auto) 5.63 Lymph # (Auto) 1.06 L [place] # (Auto) 0.86 H Eos # (Auto) 0.13 Baso # (Auto) 0.03 Immature Gran # (Auto) 0.03 Sodium 135 L Potassium 4.0 Chloride 103 Carbon Dioxide 26 Anion Gap 6 BUN 12 Creatinine 0.87 Est Cr Clr Drug Dosing 95.7 Est GFR ( Amer) 99.9 Est GFR (Non-Af Amer) 86.2 BUN/Creatinine Ratio 13.8 Glucose 108 H Calcium 9.4 Troponin I High Sens Anaplasma Smear See Comment Blood Type Antibody Screen PG Care Time/CCT Total # of Minutes Spent Total Time Spent with Patient: Total time spent is greater than 50% in coordination of care (as documented) at patient's floor/unit and/or counseling patient: Coding Level of Care Code 77610 SUB INP/OBS CARE 50MIN Diagnoses Pathological fracture of hip due to age-related osteoporosis M80.059A Fever R50.9 Hypertension I10 Obstructive sleep apnea G47.33 Hyperlipidemia E78.5 Syncope R55 Alcohol abuse F10.10 DVT prophylaxis Z29.9
[2023-03-26] MEDS: ASPIRIN 81 MG ECTAB PO SCH (20:21)
[2023-03-26] MEDS: DOCUSATE SODIUM/SENNA 50/8.6MG TAB PO SCH (20:21)
[2023-03-27] MEDS: MoRPHine SULFATE 2 MG/ML CARP IV PRN ×4 (01:07→22:46)
[2023-03-27] MEDS: THIAMINE HCL 500 MG in SODIUM CHLORIDE 0.9% 50 ML IV SCH ×3 (01:09→17:54)
[2023-03-27] MEDS: ceFAZolin 2000MG 2,000 MG/15 ML SYR IV SCH (01:09)
[2023-03-27] MEDS: SODIUM CHLORIDE 0.9% 1000ML 1,000 ML IV SCH (03:17)
[2023-03-27 06:32] LABS: Basophils # (auto) 0.01 K/uL (0-0.2); Basophils % (auto) 0.1 %; Eosinophils # (auto) 0.05 K/uL (0-0.50); Eosinophils % (auto) 0.6 %; Hematocrit (blood only) 42.2 % (42.0-52.0); Hemoglobin 14.4 g/dl (14.0-18.0); Immature Granulocytes # (auto) 0.03 K/uL (0.01-0.20); Immature Granulocytes % (auto) 0.4 %; Lymphocytes # (auto) 1.02 K/uL (1.2-3.4); Mean Corpuscular Hemoglobin 32.3 pg (25.0-34.0); Mean Corpuscular Hgb Conc 34.1 g/dL (32.0-36.0); Mean Corpuscular Volume 94.6 fL (80.0-100.0); Mean Platelet Volume 10.6 fL (9.4-12.4); Monocytes # (auto) 0.86 K/uL (0.11-0.59); Monocytes % (auto) 10.1 %; Neutrophils # (auto) 6.54 K/uL (1.40-6.50); Neutrophils % (auto) 76.8 %; Platelet Count 132 K/uL (130-400); RDW Coefficient of Variation 12.6 % (11.5-14.5); Red Blood Count 4.46 M/uL (4.70-6.10); White Blood Count 8.51 K/ul (4.8-10.8)
[2023-03-27 06:44] LABS: BUN Creatinine Ratio 19.7 (10-20); Calcium 9.2 mg/dl (8.6-10.3); Est GFR (African American) 105.6 ml/min; Est GFR (Non-African American) 91.1 ml/min; Potassium 3.9 mmol/L (3.5-5.1)
--- NOTE | 2023-03-27 08:44 | Progress Notes ---
SUBJECTIVE: A 72-year-old gentleman, postoperative day 1 from cannulated screw fixation of valgus impacted femora l neck fracture. He is doing pretty well. He rates his pain at worse at a 4. No chest pain or shor tness of breath. No complaints. OBJECTIVE: VITAL SIGNS: Temperature 36.7. Vital signs are stable. Little hypertensive. EXTREMITIES: Examination of the left hip reveals the dressing to be clean, dry and intact. Thigh is soft and supple. Leg lengths equal. He can dorsiflex and plantarflex his foot appropriately. LABORATORY DATA: Hemoglobin 14.4. Hematocrit 42.2. Electrolytes are stable. ASSESSMENT: A 72-year-old gentleman, postoperative day 1 from cannulated screw fixation of valgus impacted femora l neck fracture. He is doing well. Pain controlled. He is neurologically intact. PLAN: 1. DVT prophylaxis includes thigh-high TEDs, SCDs, and a baby aspirin twice a day for 6 weeks. 2. PT/OT. He is 50% weightbearing left leg for the next 6 weeks. 3. Routine wound care. 4. Medical management as per the medicine service. 5. Disposition: He is orthopedically okay for discharge any time medically stable. He will need to get through therapy and see how he does. He lives by himself. He might benefit from a rehab or a [facility] stay. Job ID: [id number]
[2023-03-27] MEDS: SIMVASTATIN 40 MG TAB PO SCH (08:56)
[2023-03-27] MEDS: FOLIC ACID 1 MG in SYRINGE 9.8 ML IV SCH (08:56)
[2023-03-27] MEDS: ASPIRIN 81 MG ECTAB PO SCH ×2 (08:57→20:18)
[2023-03-27] MEDS: lisinopril 10 MG TAB PO SCH ×2 (08:57→20:19)
[2023-03-27] MEDS: DOXYCYCLINE HYCLATE 100 MG CAP PO SCH ×2 (08:57→20:18)
[2023-03-27] MEDS: CHOLECALCIFEROL 5,000 UNITS 125 MCG TAB PO SCH (08:57)
[2023-03-27 10:12] LABS: Lyme Ab IgG w/WB Rflx Positive (Negative); Lyme Ab IgM w/WB Rflx Equivocal (Negative)
--- NOTE | 2023-03-27 10:46 | CT Scan Report ---
CT OF THE HEAD WITHOUT CONTRAST CLINICAL HISTORY: recent fall, syncope COMPARISON STUDY: No previous studies for comparison. TECHNIQUE: Helical axial images of the head were obtained without IV contrast. Automated exposure con trol was utilized for the study. A dose lowering technique was utilized adhering to the principles o f ALARA. FINDINGS: No acute intracranial hemorrhage, midline shift or mass effect is present. The ventricular system is unremarkable. There is bifrontal periventricular hypodensity with suspected encephalomalaci a, greater within left frontal lobe. There is mild associated dilatation of the frontal horn of the l eft lateral ventricle. Minimal calcification within the bilateral basal ganglia. The basal cisterns a re patent. No extra-axial collections are present. There are no findings to suggest acute dural sinus thrombosis or acute territorial infarct. Mild polypoid mucosal thickening within the sinuses is pres ent. There is no calvarial fracture. IMPRESSION: 1. No acute intracranial findings. 2. No acute calvarial fracture. 3. Bifrontal periventricular hypodensity with encephalomalacia. This suggests remote insult/infarct. ACT 112: Negative or not required by law. Electronically signed by: Pepe Chahal M.D. 03/27/2023 10:44 AM
--- NOTE | 2023-03-27 10:54 | CT Scan Report ---
CT OF THE CERVICAL SPINE WITHOUT CONTRAST CLINICAL HISTORY: fall, syncope, eval cervical spine fracture COMPARISON STUDY: Cervical spine radiographs November 03, 2016. TECHNIQUE: Helical axial images of the cervical spine were obtained without IV contrast. Sagittal a nd coronal reconstructions were viewed. Automated exposure control was utilized for the study. A do se lowering technique was utilized adhering to the principles of ALARA. FINDINGS: Alignment of the cervical spine is anatomic. Vertebral body heights are maintained. No acut e cervical spine fracture or subluxation is present. There is no prevertebral edema. Facet joints are intact. There is moderate multilevel facet arthrosis, disc space narrowing and osteophytosis within the cervical spine. IMPRESSION: No acute cervical spine fracture or subluxation. ACT 112: Negative or not required by law. Electronically signed by: Pepe Chahal M.D. 03/27/2023 10:51 AM
[2023-03-27] MEDS ORDERED: amLODIPine BESYLATE 5 MG TAB PO ONE (17:30)
--- NOTE | 2023-03-27 19:47 | Hospitalist Progress Note ---
Date of Service March 27, 2023 Assessment & Plan (1) Pathological fracture of hip due to age-related osteoporosis: Plan: left; impacted hip fracture POD #1 - s/p ORIF by Dr Vergara with 3 screws appreciate his assistance cont pain control replace low 25-OH vit D DVT proph - asa 81mg BID PT, OT evals appreciated; rehab advised weight-bearing status - partial (50%) LLE (2) Fever: Plan: Tm 37.6 on 03/25/23 but no elevated temps since then no recent infectious symptoms [place] has had Lyme disease in the past checked anaplasmosis smear --> negative sent DNA test am checked Lyme screen - IgM equivacol; IgG + while awaiting western blot results for Lyme --> empiric doxy 100mg BID cxr w/o infiltrates u/a without signs of UTI (3) Hypertension: Plan: Hypertensive urgency with markedly elevated blood pressure upon arrival to the ER to 224/167. BPs are improved but still high. He is on lisinopril 10mg BID Add amlodipine 5mg daily (4) Obstructive sleep apnea: Plan: Chronic. Patient has a CPAP at home. He hadn't been using it over the last several weeks but reported he was fairly compliant with it before then. CPAP qHS (5) Hyperlipidemia: Plan: Continue Simvastatin CPK minimally elevated; can cont statin (6) Syncope: Plan: He had prodromal dizziness/disorientation then had brief syncope which left to his L hip fracture He had been feeling dizzy earlier in the day at a dental office visit Echo with preserved EF and normal valves Carotid duplex wnl CT c-spine w/o fracture CT head with old bifrontal injuries - see below suspect syncope was BP-related (7) Alcohol abuse: Plan: Cont AWSS protocol ativan prn folate thiamine watch for development of DTs but thus far none seen (8) DVT prophylaxis: Plan: asa 81mg BID (9) Vitamin D insufficiency: Plan: 25-OH vit D = 21 start vit D 5000 IU daily (10) Abnormal head CT: Plan: today's head CT showed -- "Bifrontal periventricular hypodensity with encephalomalacia. This suggests remote insult/infarct." patient denies ANY h/o head injury, stroke, etc he has not suffered from any cognitive difficulties or memory loss recommend that he see neurology non-urgently as outpatient and consider MRI brain for more information patient made aware of CT head findings Plan progressing nicely to rehab this week Admission and Anticipated Discharge Date Admission Date: March 25, 2023 Subjective patient resting comfortably in bed during the visit he worked with PT/OT today he felt he did pretty good with such rehab advised by both therapies we discussed inpatient rehab in detail - he is agreeable to such reports L hip pain but not severe no dyspnea no chest pain no abd pain +flatus but no stool yet Review of Systems Review of Systems: gen - no fevers or chills; eating well cv - no chest pain pulm - no dyspnea GI - no nausea or emesis Physical Exam Physical Exam: gen - NAD, lying comfortably in bed mouth - MMM neck - no JVD heart - RRR, s1 s2, no murmur lungs - CTA b/l abd - soft NT ND BS+ ext - no edema ankles/feet, pulses 2+ b/l musculo - left hip dressings in place; mild edema of left thigh Results & Data Results & Data Vital Signs (Past 12 Hours) Vital Signs Temp Pulse Pulse Resp BP Pulse Ox O2 Del Method 03/27/23 18:20 68 162/84 H 03/27/23 16:44 72 182/85 H 03/27/23 15:42 74 192/96 H 03/27/23 14:56 78 03/27/23 10:52 36.7 C 76 16 174/97 H 95 Room Air Laboratory Results Laboratory Results - last 24 hr 03/27/23 03/27/23 03/27/23 05:55 05:55 05:55 WBC RBC Hgb Hct MCV MCH MCHC RDW Std Deviation RDW Coeff of Kojo Plt Count MPV Immature Gran % (Auto) Neut % (Auto) Lymph % (Auto) [place] % (Auto) Eos % (Auto) Baso % (Auto) Neut # (Auto) Lymph # (Auto) [place] # (Auto) Eos # (Auto) Baso # (Auto) Immature Gran # (Auto) Sodium 136 Potassium 3.9 Chloride 108 H Carbon Dioxide 22 Anion Gap 6 BUN 15 Creatinine 0.76 Est Cr Clr Drug Dosing 110.0 Est GFR ( Amer) 105.6 Est GFR (Non-Af Amer) 91.1 BUN/Creatinine Ratio 19.7 Glucose 162 H Calcium 9.2 Total Creatine Kinase 366 H 25-OH Vitamin D Total A. phagocytophilum DNA Pending Lyme Disease IgG Ab Positive A Lyme IgG (Western Blot) Lyme IgG 18 kDa Band Lyme IgG 23 kDa Band Lyme IgG 28 kDa Band Lyme IgG 30 kDa Band Lyme IgG 39 kDa Band Lyme IgG 41 kDa Band Lyme IgG 45 kDa Band Lyme IgG 58 kDa Band Lyme IgG 66 kDa Band Lyme IgG 93 kDa Band Lyme IgM Ab (WB) Lyme Disease IgM Ab Equivocal A Lyme IgM 23 kDa Band Lyme IgM 39 kDa Band Lyme IgM 41 kDa Band 03/27/23 03/27/23 03/27/23 05:55 05:55 05:55 WBC 8.51 RBC 4.46 L Hgb 14.4 Hct 42.2 MCV 94.6 MCH 32.3 MCHC 34.1 RDW Std Deviation 44.0 RDW Coeff of Kojo 12.6 Plt Count 132 MPV 10.6 Immature Gran % (Auto) 0.4 Neut % (Auto) 76.8 Lymph % (Auto) 12.0 [place] % (Auto) 10.1 Eos % (Auto) 0.6 Baso % (Auto) 0.1 Neut # (Auto) 6.54 H Lymph # (Auto) 1.02 L [place] # (Auto) 0.86 H Eos # (Auto) 0.05 Baso # (Auto) 0.01 Immature Gran # (Auto) 0.03 Sodium Potassium Chloride Carbon Dioxide Anion Gap BUN Creatinine Est Cr Clr Drug Dosing Est GFR ( Amer) Est GFR (Non-Af Amer) BUN/Creatinine Ratio Glucose Calcium Total Creatine Kinase 25-OH Vitamin D Total 21.0 L A. phagocytophilum DNA Lyme Disease IgG Ab Lyme IgG (Western Blot) Pending Lyme IgG 18 kDa Band Pending Lyme IgG 23 kDa Band Pending Lyme IgG 28 kDa Band Pending Lyme IgG 30 kDa Band Pending Lyme IgG 39 kDa Band Pending Lyme IgG 41 kDa Band Pending Lyme IgG 45 kDa Band Pending Lyme IgG 58 kDa Band Pending Lyme IgG 66 kDa Band Pending Lyme IgG 93 kDa Band Pending Lyme IgM Ab (WB) Pending Lyme Disease IgM Ab Lyme IgM 23 kDa Band Pending Lyme IgM 39 kDa Band Pending Lyme IgM 41 kDa Band Pending Diagnostic Findings Cervical Spine CT 03/27/23 08:28 CT OF THE CERVICAL SPINE WITHOUT CONTRAST CLINICAL HISTORY: fall, syncope, eval cervical spine fracture COMPARISON STUDY: Cervical spine radiographs November 03, 2016. TECHNIQUE: Helical axial images of the cervical spine were obtained without IV contrast. Sagittal and coronal reconstructions were viewed. Automated exposure control was utilized for the study. A dose lowering technique was utilized adhering to the principles of ALARA. FINDINGS: Alignment of the cervical spine is anatomic. Vertebral body heights are maintained. No acute cervical spine fracture or subluxation is present. There is no prevertebral edema. Facet joints are intact. There is moderate multilevel facet arthrosis, disc space narrowing and osteophytosis within the cervical spine. IMPRESSION: No acute cervical spine fracture or subluxation. ACT 112: Negative or not required by law. Electronically signed by: Pepe Chahal M.D. 03/27/2023 10:[address] 03/27/23 08:28 CT OF THE HEAD WITHOUT CONTRAST CLINICAL HISTORY: recent fall, syncope COMPARISON STUDY: No previous studies for comparison. TECHNIQUE: Helical axial images of the head were obtained without IV contrast. Automated exposure control was utilized for the study. A dose lowering technique was utilized adhering to the principles of ALARA. FINDINGS: No acute intracranial hemorrhage, midline shift or mass effect is present. The ventricular system is unremarkable. There is bifrontal perive ntricular hypodensity with suspected encephalomalacia, greater within left frontal lobe. There is mild associated dilatation of the frontal horn of the left lateral ventricle. Minimal calcification within the bilateral basal ganglia. The basal cisterns are patent. No extra-axial collections are present. There are no findings to suggest acute dural sinus thrombosis or acute territorial infarct. Mild polypoid mucosal thickening within the sinuses is present. There is no calvarial fracture. IMPRESSION: 1. No acute intracranial findings. 2. No acute calvarial fracture. 3. Bifrontal periventricular hypodensity with encephalomalacia. This suggests remote insult/infarct. ACT 112: Negative or not required by law. Electronically signed by: Pepe Chahal M.D. 03/27/2023 10:44 AM PG Care Time/CCT Total # of Minutes Spent Total Time Spent with Patient: Total time spent is greater than 50% in coordination of care (as documented) at patient's floor/unit and/or counseling patient: Coding Level of Care Code 85181 SUB INP/OBS CARE 3/50MIN Diagnoses Pathological fracture of hip due to age-related osteoporosis M80.059A Fever R50.9 Hypertension I10 Obstructive sleep apnea G47.33 Hyperlipidemia E78.5 Syncope R55 Alcohol abuse F10.10 DVT prophylaxis Z29.9 Vitamin D insufficiency E55.[address] R93.0
[2023-03-27] MEDS: DOCUSATE SODIUM/SENNA 50/8.6MG TAB PO SCH (20:18)
[2023-03-28] MEDS: THIAMINE HCL 500 MG in SODIUM CHLORIDE 0.9% 50 ML IV SCH ×3 (01:12→16:57)
[2023-03-28 07:24] LABS: Platelet Count 148 K/uL (130-400)
[2023-03-28 07:49] LABS: BUN Creatinine Ratio 17.1 (10-20); Creatinine Clr Calc Pharmacy 101.7 ml/min; Est GFR (African American) 102.4 ml/min; Est GFR (Non-African American) 88.3 ml/min; Potassium 3.9 mmol/L (3.5-5.1)
[2023-03-28] MEDS ORDERED: amLODIPine BESYLATE 5 MG TAB PO SCH (09:00)
[2023-03-28] MEDS: ASPIRIN 81 MG ECTAB PO SCH ×2 (09:22→21:12)
[2023-03-28] MEDS: lisinopril 10 MG TAB PO SCH ×2 (09:22→21:12)
[2023-03-28] MEDS: CHOLECALCIFEROL 5,000 UNITS 125 MCG TAB PO SCH (09:22)
[2023-03-28] MEDS: DOXYCYCLINE HYCLATE 100 MG CAP PO SCH ×2 (09:22→21:11)
[2023-03-28] MEDS: FOLIC ACID 1 MG in SYRINGE 9.8 ML IV SCH (09:23)
[2023-03-28] MEDS: POLYETHYLENE (MIRALAX) 17 GM PACK PO SCH ×2 (11:40→17:26)
--- NOTE | 2023-03-28 16:56 | Progress Notes ---
DATE OF SERVICE: 03/28/2023 SUBJECTIVE: A 72-year-old gentleman, postoperative day 2 from cannulated screw fixation of a valgus impacted femoral neck fracture. He seems to be doing well. Rates his pain at about 2. No chest aron n or shortness of breath. Not feeling dizzy or lightheaded. OBJECTIVE: VITAL SIGNS: Temperature 37.1. Vital signs are stable. PHYSICAL EXAMINATION: GENERAL: Shows a pleasant middle-aged male. He is sitting up in his bed this morning and looks quit e comfortable. EXTREMITIES: Examination of the left hip reveals the dressing to be clean, dry and intact. Leg jacqui ths are equal. Minimal pain with hip motion. LABORATORY DATA: Hemoglobin of 14.4, hematocrit is 42.2. Electrolytes are stable. ASSESSMENT: A 72-year-old gentleman, postoperative day 2 from cannulated screw fixation of a valgus impacted femoral neck fracture, doing well. Pain is controlled. PLAN: 1. DVT prophylaxis includes thigh-high TEDs, SCDs, and baby aspirin twice a day for 6 weeks. 2. PT/OT. He is going to be 50% weightbearing in the left leg for 6 weeks. 3. Routine wound care. 4. Medical management as per the medicine service. 5. Disposition: He is okay from orthopedic discharge any time medically stable. He lives by himsel f and likely will need a rehab or [facility] facility stay. I need to see him back in 2-3 weeks out from surgery date. Any orthopedic questions can be directed to me at [phone]. Job ID: [id number]
--- NOTE | 2023-03-28 20:15 | Hospitalist Progress Note ---
Date of Service March 28, 2023 Assessment & Plan (1) Pathological fracture of hip due to age-related osteoporosis: Plan: left; impacted hip fracture POD #2 - s/p ORIF by Dr Vergara with 3 screws appreciate his assistance doing well from ortho standpoint cont pain control replace low 25-OH vit D DVT proph - asa 81mg BID PT, OT evals appreciated; rehab advised; [facility] referral pending weight-bearing status - partial (50%) LLE (2) Fever: Plan: Tm 37.6 on 03/25/23 but no elevated temps since then no recent infectious symptoms [place] has had Lyme disease in the past checked anaplasmosis smear --> negative sent DNA test and this is pending checked Lyme screen - IgM equivacol; IgG + while awaiting western blot results for Lyme --> cont empiric doxy 100mg BID cxr w/o infiltrates u/a without signs of UTI (3) Hypertension: Plan: Hypertensive urgency with markedly elevated blood pressure upon arrival to the ER to 224/167. BPs are improved but still high. He is on lisinopril 10mg BID Added amlodipine 5mg daily but will increase to 5mg BID (4) Obstructive sleep apnea: Plan: Chronic. Patient has a CPAP at home. He hadn't been using it over the last several weeks but reported he was fairly compliant with it before then. Unfortunately he is declining use of CPAP here (5) Hyperlipidemia: Plan: Continue Simvastatin CPK minimally elevated; can cont statin (6) Syncope: Plan: He had prodromal dizziness/disorientation then had brief syncope which led to his L hip fracture He had been feeling dizzy earlier in the day at a dental office visit the day of his fall/syncope Echo with preserved EF and normal valves Carotid duplex wnl CT c-spine w/o fracture CT head with old bifrontal injuries - see below suspect syncope was BP-related (7) Alcohol abuse: Plan: Cont AWSS protocol but thus far NO signs of withdrawal or DTs ativan prn folate thiamine (8) DVT prophylaxis: Plan: asa 81mg BID (9) Vitamin D insufficiency: Plan: 25-OH vit D = 21 started vit D 5000 IU daily (10) Abnormal head CT: Plan: head CT showed "Bifrontal periventricular hypodensity with encephalomalacia. This suggests remote insult/infarct." patient denies ANY h/o head injury, stroke, etc he has not suffered from any cognitive difficulties or memory loss recommend that he see neurology non-urgently as outpatient and consider MRI brain for more information patient made aware of CT head findings Plan progressing nicely to rehab this week pending insurance approval Admission and Anticipated Discharge Date Admission Date: March 25, 2023 Subjective tele overnight wnl patient feeling well sitting in the chair during the visit left hip pain relatively controlled worked with PT today ambulated to bathroom had bowel movement today eating well drinking well still willing to go to rehab if insurance approves Review of Systems Review of Systems: gen - no fevers or chills cv - no chest pain pulm - no cough, no dyspnea GI - no abd pain, nausea, emesis Physical Exam Physical Exam: gen - NAD, sitting in chair, looks great mouth - MMM neck - no JVD heart - RRR, s1 s2, no murmur lungs - CTA b/l abd - soft NT ND BS+ ext - no edema ankles/feet, pulses 2+ b/l musculo - left hip dressings in place; lucas intact; mild edema of left thigh only Results & Data Results & Data Vital Signs (Past 12 Hours) Vital Signs Temp Pulse Pulse Pulse Resp BP BP 03/28/23 19:54 36.8 C 85 20 165/89 H 03/28/23 16:23 37.1 C 75 18 160/90 H 03/28/23 14:49 85 03/28/23 11:32 36.5 C 75 18 151/88 H Pulse Ox O2 Del Method 03/28/23 19:54 93 Room Air 03/28/23 16:23 93 Room Air 03/28/23 14:49 03/28/23 11:32 94 Room Air Laboratory Results Laboratory Results - last 24 hr 03/28/23 03/28/23 03/28/23 01:14 01:16 01:29 Plt Count Sodium Potassium Chloride Carbon Dioxide Anion Gap BUN Creatinine Est Cr Clr Drug Dosing Est GFR ( Amer) Est GFR (Non-Af Amer) BUN/Creatinine Ratio Glucose POC Glucose 68 L* 97 71 Calcium 03/28/23 03/28/23 03/28/23 02:13 06:37 06:37 Plt Count 148 Sodium 136 Potassium 3.9 Chloride 104 Carbon Dioxide 28 Anion Gap 4 BUN 14 Creatinine 0.82 Est Cr Clr Drug Dosing 101.7 Est GFR ( Amer) 102.4 Est GFR (Non-Af Amer) 88.3 BUN/Creatinine Ratio 17.1 Glucose 93 POC Glucose 150 H Calcium 9.0 03/28/23 03/28/23 07:54 11:34 Plt Count Sodium Potassium Chloride Carbon Dioxide Anion Gap BUN Creatinine Est Cr Clr Drug Dosing Est GFR ( Amer) Est GFR (Non-Af Amer) BUN/Creatinine Ratio Glucose POC Glucose 107 H 103 H Calcium PG Care Time/CCT Total # of Minutes Spent Total Time Spent with Patient: Total time spent is greater than 50% in coordination of care (as documented) at patient's floor/unit and/or counseling patient: Coding Level of Care Code 73128 SUB INP/OBS CARE 235MIN Diagnoses Pathological fracture of hip due to age-related osteoporosis M80.059A Fever R50.9 Hypertension I10 Obstructive sleep apnea G47.33 Hyperlipidemia E78.5 Syncope R55 Alcohol abuse F10.10 DVT prophylaxis Z29.9 Vitamin D insufficiency E55.[address] R93.0
[2023-03-28] MEDS: amLODIPine BESYLATE 5 MG TAB PO SCH (21:11)
[2023-03-28] MEDS: DOCUSATE SODIUM/SENNA 50/8.6MG TAB PO SCH (21:15)
[2023-03-29] MEDS: POLYETHYLENE (MIRALAX) 17 GM PACK PO SCH ×2 (01:36→05:43)
[2023-03-29] MEDS: THIAMINE HCL 500 MG in SODIUM CHLORIDE 0.9% 50 ML IV SCH ×3 (02:09→16:31)
--- NOTE | 2023-03-29 08:02 | Hospitalist Progress Note ---
Date of Service March 29, 2023 Assessment & Plan (1) Pathological fracture of hip due to age-related osteoporosis: Plan: left; impacted hip fracture 03/26/2023 s/p ORIF by Dr Vergara with 3 screws Patient likely will benefit from placement for rehab cont pain control replace low 25-OH vit D DVT proph - asa 81mg BID PT, OT evals appreciated; rehab advised; [facility] referral pending weight-bearing status - partial (50%) LLE (2) Fever: Plan: Tm 37.6 on 03/25/23 but no elevated temps since then Send out Lyme testing confirms positive acute Lyme disease cont doxy 100mg BID cxr w/o infiltrates u/a without signs of UTI (3) Hypertension: Plan: Hypertensive urgency with markedly elevated blood pressure upon arrival to the ER to 224/167. BPs are improved but still high. He is on lisinopril 10mg BID Added amlodipine 5mg BID (4) Obstructive sleep apnea: Plan: Chronic. Patient has a CPAP at home. He hadn't been using it over the last several weeks but reported he was fairly compliant with it before then. Unfortunately he is declining use of CPAP here (5) Hyperlipidemia: Plan: Continue Simvastatin CPK minimally elevated; can cont statin (6) Syncope: Plan: He had prodromal dizziness/disorientation then had brief syncope which led to his L hip fracture He had been feeling dizzy earlier in the day at a dental office visit the day of his fall/syncope Echo with preserved EF and normal valves Carotid duplex wnl CT c-spine w/o fracture CT head with old bifrontal injuries - suspect syncope was BP-related (7) Alcohol abuse: Plan: Cont AWSS protocol but thus far NO signs of withdrawal or DTs ativan prn folate thiamine (8) DVT prophylaxis: Plan: asa 81mg BID (9) Abnormal head CT: Plan: head CT showed "Bifrontal periventricular hypodensity with encephalomalacia. This suggests remote insult/infarct." patient denies ANY h/o head injury, stroke, etc he has not suffered from any cognitive difficulties or memory loss recommend that he see neurology non-urgently as outpatient and consider MRI brain for more information patient made aware of CT head findings (10) Vitamin D insufficiency: Plan: 25-OH vit D = 21 started vit D 5000 IU daily Plan Pending approval for rehab Admission and Anticipated Discharge Date Admission Date: March 25, 2023 Subjective Patient desperately wants to get out of the hospital he is informed awaiting insurance approval. Lyme titers have returning from these Lyme disease test positive Still having some weakness to his hip flexor otherwise no focal complaints or problems Physical Exam Physical Exam: Exam is regular lungs are clear distal extremities are with intact perfusion and neurological sensation Results & Data Results & Data Vital Signs (Past 12 Hours) Vital Signs Temp Pulse Pulse Resp BP BP Pulse Ox 03/29/23 07:43 98.4 F 72 18 152/88 H 92 03/29/23 06:00 69 03/29/23 03:39 97.7 F 72 18 163/93 H 91 03/28/23 21:59 78 03/28/23 23:33 98.4 F 72 20 172/96 H 93 O2 Del Method 03/29/23 07:43 Room Air 03/29/23 06:00 03/29/23 03:39 Room Air 03/28/23 21:59 03/28/23 23:33 Room Air Laboratory Results Reviewed Lyme titers showing 3 IgM bands positive concern farming positive Lyme test PG Care Time/CCT Total # of Minutes Spent Total Time Spent with Patient: Total time spent is greater than 50% in coordination of care (as documented) at patient's floor/unit and/or counseling patient: Coding Level of Care Code 70037 SUB INP/OBS CARE 2/35MIN Diagnoses Pathological fracture of hip due to age-related osteoporosis M80.059A Fever R50.9 Hypertension I10 Obstructive sleep apnea G47.33 Hyperlipidemia E78.5 Syncope R55 Alcohol abuse F10.10 DVT prophylaxis Z29.[address] R93.0 Vitamin D insufficiency E55.9
[2023-03-29] MEDS: FOLIC ACID 1 MG in SYRINGE 9.8 ML IV SCH (08:32)
[2023-03-29] MEDS: CHOLECALCIFEROL 5,000 UNITS 125 MCG TAB PO SCH (08:33)
[2023-03-29] MEDS: lisinopril 10 MG TAB PO SCH ×2 (08:33→20:29)
[2023-03-29] MEDS: amLODIPine BESYLATE 5 MG TAB PO SCH ×2 (08:33→20:29)
[2023-03-29] MEDS: ASPIRIN 81 MG ECTAB PO SCH ×2 (08:33→20:29)
[2023-03-29] MEDS: DOXYCYCLINE HYCLATE 100 MG CAP PO SCH ×2 (08:33→20:29)
--- NOTE | 2023-03-29 09:18 | Orthopedic Progress Note ---
Date of Service March 29, 2023 Assessment & Plan (1) Closed left hip fracture: Postop day 3 from a cannulated screw fixation of valgus impacted femoral neck fracture. Orthopedically he is doing well. He is okay for discharge anytime medically stable. He is 50% weightbearing left leg for 6 weeks. Routine wound care. DVT prophylax include thigh-high teds SCDs we recommend baby aspirin twice a day for 6 weeks. I need to see him back 2-3 weeks from the surgery date any orthopedic questions can direct me [phone] Subjective . 72-year-old gentleman postop day 3 from cannulated screw fixation of a valgus impacted femoral neck fracture. He is doing pretty well. Pain is controlled. Just wait for placement. No new complaints. Review of Systems All systems reviewed & are unremarkable except as noted in HPI & below. Physical Exam . Physical nation was a pleasant middle-age male. Sitting in his bedside chair working on his computer. Examination left hip and leg reveals the dressing to clean dry and intact. His thigh is soft and supple. Leg lengths are equal. He is neurologically intact. Results & Data Results & Data Laboratory Results . Diagnostic Findings . PG Care Time/CCT Total # of Minutes Spent Total Time Spent with Patient: Total time spent is greater than 50% in coordination of care (as documented) at patient's floor/unit and/or counseling patient: Coding Level of Care Code 97416 Post Operative Follow-Up Diagnoses Closed left hip fracture S72.002A
[2023-03-29 17:17] LABS: 18KDIGG Band REACTIVE; 23KDIGG Band NON-REACTIVE; 23KDIGM Band REACTIVE; 28KDIGG Band NON-REACTIVE; 30KDIGG Band NON-REACTIVE; 39KDIGG Band REACTIVE; 39KDIGM Band NON-REACTIVE; 41KDIGG Band REACTIVE; 41KDIGM Band REACTIVE; 45KDIGG Band NON-REACTIVE; 58KDIGG Band NON-REACTIVE; 66KDIGG Band NON-REACTIVE; 93KDIGG Band REACTIVE; Lyme Antibodies, WB IgG NEGATIVE (NEGATIVE); Lyme Antibodies, WB IgM POSITIVE (NEGATIVE)
[2023-03-29] MEDS ORDERED: MELATONIN 3 MG TAB PO PRN (20:16)
[2023-03-29] MEDS: DOCUSATE SODIUM/SENNA 50/8.6MG TAB PO SCH (20:30)
[2023-03-30] MEDS: THIAMINE HCL 500 MG in SODIUM CHLORIDE 0.9% 50 ML IV SCH ×3 (01:59→10:58)
[2023-03-30] MEDS: FOLIC ACID 1 MG in SYRINGE 9.8 ML IV SCH (08:36)
[2023-03-30] MEDS: ASPIRIN 81 MG ECTAB PO SCH (08:41)
[2023-03-30] MEDS: lisinopril 10 MG TAB PO SCH (08:41)
[2023-03-30] MEDS: amLODIPine BESYLATE 5 MG TAB PO SCH (08:41)
[2023-03-30] MEDS: DOXYCYCLINE HYCLATE 100 MG CAP PO SCH (08:41)
[2023-03-30] MEDS: CHOLECALCIFEROL 5,000 UNITS 125 MCG TAB PO SCH (08:41)
--- NOTE | 2023-03-30 11:34 | Orthopedic Progress Note ---
Date of Service March 30, 2023 Assessment & Plan (1) Closed left hip fracture: Patient is now 4 days out from cannulated screw fixation of a valgus impacted femoral neck fracture. He is doing well. Pain is controlled. 1. DVT prophylax include thigh dysesthesia and aspirin twice a day for 6 weeks #2 PT OT. He is 50% weightbearing left leg for 6 weeks #3 his pain controlled and okay with current pain regimen for disposition plan to [facility] later today. Subjective . 72-year-old gentleman now 4 days out from a cannulated screw fixation of a valgus impacted femoral neck fracture on the left side. Is doing pretty well. Pain is getting a bit better daily. Therapy is going okay. He just went for placement. Review of Systems All systems reviewed & are unremarkable except as noted in HPI & below. Physical Exam . Physical exam shows pleasant middle-age male 3 cm bedside chair looks comfortable. Examination left hip and leg reveals the leg to be well aligned. Dressing is clean dry and intact. Thigh is soft and supple. He is neurologically intact. He can do a straight leg raise. Results & Data Results & Data Laboratory Results . Diagnostic Findings . PG Care Time/CCT Total # of Minutes Spent Total Time Spent with Patient: Total time spent is greater than 50% in coordination of care (as documented) at patient's floor/unit and/or counseling patient: Coding Level of Care Code 87782 Post Operative Follow-Up Diagnoses Closed left hip fracture S72.002A
--- NOTE | 2023-03-30 14:14 | Discharge Summary ---
Date of Service March 30, 2023 Admission HPI Per Admitting Provider Mario Isaacs is a pleasant 72yo male with history of hypertension, HLP and VAL presenting with left hip fracture. Patient reports feeling slightly off yesterday 03/24/23 - some brief episodes of dizziness noted with positional changes. Around 18:00 he went to the car to get some papers out. He bent down and got up quickly then became dizzy, lost his balance and fell onto his left hip - ground level fall onto a paved driveway. He denies head trauma or LOC. He had friends nearby that helped him up. Patient did have some discomfort in the left hip but continue to walk on it. He went out to dinner then home. He was able to sleep last night but had some discomfort. He came to the ER today for continued pain. Patient denies fever, chills, chest pain, palpitations, abdominal pain, nausea, vomiting, diarrhea or constipation. No urinary complaints. In the ER patient is afebrile, hypertensive. He denies pain at present ER Course: Morphine 6mg IV Hydralazine 5mg IV Zofran 4mg IV Principal Diagnosis Mechanical fall with left hip fracture status post cannulated screw and fixation on 03/26/[address] Juan Vergara Testing positive for acute Lyme disease with treatment Discharge Exam Patient is awake and alert leg pain is tolerable Discharge Data Allergies Allergy/AdvReac Type Severity Reaction Status Date / Time No Known Allergies Allergy Verified 12/29/22 09:47 Consultations 03/25/23 16:13 Consult Orthopedic Surgery Routine Procedures Performed Operation Date: 03/26/23 10:30 Actual Procedures p Cannulated Screw Fixation of Left Hip Fracture(Left) - Juan Vergara MD Ordered Studies 03/25/23 21:44 US carotid doppler BI Routine 03/26/23 FL hip LT 2-3V Routine 03/27/23 08:28 CT cervical spine wo con Routine Head CT [CT head/brain wo con] Routine Hospital Course (1) Pathological fracture of hip due to age-related osteoporosis: left; impacted hip fracture 03/26/2023 s/p ORIF by Dr Vergara with 3 screws Patient likely will rehab after discharge cont pain control replace low 25-OH vit D DVT proph - asa 81mg BID x4 to 6 weeks PT, OT evals appreciated; rehab advised; [facility] referral weight-bearing status - partial (50%) LLE (2) Fever: Tm 37.6 on 03/25/23 but no elevated temps since then Send out Lyme testing confirms positive acute Lyme disease cont doxy 100mg BID cxr w/o infiltrates u/a without signs of UTI (3) Hypertension: Hypertensive urgency with markedly elevated blood pressure upon arrival to the ER to 224/167. BPs are improved but still high. He is on lisinopril 10mg BID Added amlodipine 5mg BID (4) Obstructive sleep apnea: Chronic. Patient has a CPAP at home. He hadn't been using it over the last several weeks but reported he was fairly compliant with it before then. Unfortunately he is declining use of CPAP here (5) Hyperlipidemia: Continue Simvastatin CPK minimally elevated; can cont statin (6) Syncope: He had prodromal dizziness/disorientation then had brief syncope which led to his L hip fracture He had been feeling dizzy earlier in the day at a dental office visit the day of his fall/syncope Echo with preserved EF and normal valves Carotid duplex wnl CT c-spine w/o fracture CT head with old bifrontal injuries - suspect syncope was BP-related (7) Alcohol abuse: NO signs of withdrawal or DTs ativan prn folate thiamine (8) DVT prophylaxis: asa 81mg BID (9) Abnormal head CT: head CT showed "Bifrontal periventricular hypodensity with encephalomalacia. This suggests remote insult/infarct." patient denies ANY h/o head injury, stroke, etc he has not suffered from any cognitive difficulties or memory loss recommend that he see neurology non-urgently as outpatient and consider MRI b rain for more information patient made aware of CT head findings (10) Vitamin D insufficiency: 25-OH vit D = 21 started vit D 5000 IU daily Plan Pending approval for rehab Total Time Total Time Spent Total Time Spent (In Minutes): It required greater than 30 minutes to prepare this patient for discharge Discharge Plan Discharge Items Patient Disposition: Transfer Inpatient Rehab Fac Reason For Visit: LEFT FEMORAL NECK FRACTURE Discharge Diagnosis: ORIF Left Hip Fracture Activity: Per Instructions section Weightbearing: Left partial Weightbearing Comment: 50% Weightbearing on left leg for 6 weeks Non-emergency contact: Surgeon Call non-emergency contact if: you have any medication questions Follow-up/Referrals: Pro,Basil Mukherjee MD [Primary Care Provider] - Juan Vergara MD [Physician] - (Orthopedic follow-up 2-3 weeks from surgery date.) Diet: Regular Addtl Attending Provider Instructions: 50% Weightbearing on left leg. Follow-up with Dr. Vergara ACTIVITY RECOMMENDATIONS: Physical Therapy: * Aggressive physical therapy is not usually needed. You will learn to take care of yourself safely and walk. * Follow the "Hip Precautions Instructions." * In some cases, the healthcare social worker at the hospital will arrange to have a therapist come to your house for the first couple of weeks to help you learn these skills. * You need to practice on your own or with the help of a family member as needed. * When you learn these skills, most of the therapy can be done on your own. Home Exercise: * You were shown a series of exercises in the hospital. Do these exercises three to four times each day including the exercises you were shown in physical therapy. Walking: * Get up and walk several times each day. For the first four weeks, try not to stand or walk for more than one hour at a time. If you do stand or walk for more than one hour, you will not hurt anything, but your leg will likely swell. * As you feel comfortable, you may change from the walker or crutches to a cane and then to independent walking. MEDICATIONS: New Medicine: * You will likely be taking one or more of these medicines: 1. Tramadol - Take, as directed, when you need it, every six hours to control your pain. 2. Iron Sulfate - Take two times each day for the month after surgery to help you replace the blood lost during surgery. 3. Aspirin - Thins your blood to lessen the chance of forming a blood clot. * The most common side effects of pain medicine and iron are nausea and constipation. If nausea or constipation is too much of a problem or if you have any questions about your new medicines or doses, call [facility] at [phone]. We will try to help you manage these issues. "VERY IMPORTANT TO READ AND REVIEW" Pain: * The immediate post-operative period after hip replacement surgery is often quite painful. * You are given a prescription for pain medicine. You should take it, as directed, when you need it, especially before physical therapy and before going to bed. Pain that interferes with sleep is very common and can last several months. * You will likely need pain medicine for the first two to four weeks. It will not stop all of the pain. The pain will lessen and as you feel better, you may change to milder pain medicine such as Tylenol. * The most common side effects of pain medicine are nausea and constipation, so don't take more than you need. SPECIAL CARE INSTRUCTIONS: TEDs/Elastic Stockings: * The white elastic stockings help limit swelling and prevent blood clots from forming in your legs. The more you wear them, the more they work. * Wear them for six weeks. Incision Site Care: * Remove dressing postoperative day 2 and then shower. Keep direct shower pressure off the incision site. * After showering, cover lucas with dry gauze and change daily or more frequently if the dressing is getting saturated with drainage. * May completely stop using bandage if wound is dry and no drainage * [place] are removed between 2 and 3 weeks post-op. If your follow-up appointment is made before 2 weeks, please have your appointment re- scheduled. It is too early to remove the lucas. Prevention of Infection: * Take antibiotics one hour before any dental cleaning, dental work, urological procedure, gastrointestinal procedure or any invasive surgery in order to prevent your new joint from getting infected. * You may get the antibiotics from the doctor performing the procedure or you may call our office at before and we will call in a prescription to the pharmacy of your choice. Things to Watch For: * Drainage from the incision site that occurs more than one week after your surgery. * Severely increased leg pain or swelling. * Increased redness at the incision site. * Fever above 102 degrees Fahrenheit. * Unusual chest pain or shortness of breath. * Unusual pain or burning with urination. Call [facility] at with any of the above problems or if you have any questions about your medicines or recovery. FOLLOW UP VISIT: Make an appointment to see your doctor for approximately two weeks after surgery for a progress check and staple removal by calling the office at [phone]. 2 weeks after your day of surgery. An appointment was probably scheduled when you signed-up for surgery in the office. If you have any questions call [facility] [employer] [facility] Provider Instructions: you have been diagonsed with Lyme disease, and will comlete 14 day course of Doxycycline Pending Studies at Discharge: No Stand-Alone Forms: My [facility] Skilled Items Patient informed of condition?: Yes DNR: No Discharge Level of Care: Acute rehab Communicable Disease: No Discharge Prognosis: Stable Lines: None Urinary Catheter: No Medications and DC Order Prescriptions: New doxycycline hyclate 100 mg Capsule 100 mg PO BID Qty: 20 0RF sennosides-docusate sodium [Senokot-S] 8.6-50 mg Tablet 2 tab PO HS Qty: 60 0RF cholecalciferol (vitamin D3) 125 mcg (5,000 unit) Tablet 5,000 unit PO QAM Qty: 30 0RF acetaminophen [Tylenol Extra Strength] 500 mg tablet 1,000 mg PO TID PRN (Reason: pain) Qty: 90 0RF Continued lisinopril 30 mg tablet 30 mg PO QAM Qty: 90 3RF simvastatin 40 mg tablet 40 mg PO QAM Qty: 90 3RF Changed aspirin [Adult Low Dose Aspirin] 81 mg tablet,delayed release (DR/EC) 81 mg PO BID Qty: 60 3RF Discharge Orders: Discharge Order (Routine); Ordered 03/30/23 Ordered By: Jean Kemp Admission Data Admit Date/Time: 03/25/23 13:26 Attending Provider: Jean Kemp Admit Provider: Donna Vergara Primary Care Provider: Basil Orourke Other Providers: Nils Ward ; [facility] Other Interventions: Discharge Summary Assessment (RN) Last Done: 03/30/23 11:12 Coding Level of Care Code 32732 INP/OBS DISCH >30 MIN Diagnoses Pathological fracture of hip due to age-related osteoporosis M80.059A Fever R50.9 Hypertension I10 Obstructive sleep apnea G47.33 Hyperlipidemia E78.5 Syncope R55 Alcohol abuse F10.10 DVT prophylaxis Z29.[address] R93.0 Vitamin D insufficiency E55.9
== END 2023-03-30 14:20 | DRG 481 ==
LOC: ED 10:26 → SUATTDRO 13:26 → 3N 13:26 → 2N 21:33